=== PATIENT | male | born 1960 | race Caucasian/White ===

== ENCOUNTER 2022-06-28 11:50 | Inpatient (IN) | payer BC ==
[2022-06-28] MEDS ORDERED: SODIUM CHLORIDE 0.9% 500 ML 500 ML IV STA (12:27)
[2022-06-28] MEDS ORDERED: NITROGLYCERIN OINT 1 INCH/GM PACKET TOPICAL STA (12:27)
[2022-06-28] MEDS ORDERED: ASPIRIN 81 MG PO STA (12:27)
--- NOTE | 2022-06-28 12:31 | ED ---
General Adult HPI - General Chief complaint: Chest Pain Stated complaint: chest pain Time Seen by Provider: 06/28/22 12:00 Source: patient, RN notes reviewed, old records reviewed Mode of arrival: ambulatory Limitations: no limitations - History of Present Illness Initial comments: This is a 62-year-old male presents emergency Department has past medical history significant for smoking cigarettes and a strong family history of heart disease. Patient denies diabetes hypertension high cholesterol. Patient comes in today because over the last 3 weeks and 4 episodes of chest pain. Patient states last night was the worst he started having severe chest pain that radiated down his left arm he also became very short of breath and diaphoretic. Patient states it eventually subsided and went to bed. Patient states again this morning he started having the same symptoms didn't last quite as long and currently is almost chest pain-free but there is still little bit of chest pain. Patient denies any recent fever chills or cough. Patient denies any swelling to legs or calf tenderness. Patient denies any abdominal pain. Patient denies any pain in the back. Patient denies any recent injury or trauma. Patient denies any previous heart disease. - Related Data Home Medications Medication Instructions Recorded Confirmed No Known Home Medications 06/28/22 06/28/22 Allergies Allergy/AdvReac Type Severity Reaction Status Date / Time No Known Allergies Allergy Verified 06/28/22 12:55 Review of Systems ROS Statement: Those systems with pertinent positive or pertinent negative responses have been documented in the HPI. ROS Other: All systems not noted in ROS Statement are negative. Past Medical History Past Medical History: No Reported History Additional Past Medical History / Comment(s): kidney stones History of Any Multi-Drug Resistant Organisms: None Reported Past Surgical History: Orthopedic Surgery Past Psychological History: No Psychological Hx Reported Smoking Status: Current every day smoker Past Alcohol Use History: None Reported Past Drug Use History: None Reported General Exam - General Exam Comments Initial Comments: GENERAL: Patient is well-developed and well-nourished. Patient is nontoxic and well- hydrated and is in mild distress. ENT: Neck is soft and supple. No significant lymphadenopathy is noted. Oropharynx is clear. Moist mucous membranes. Neck has full range of motion without e liciting any pain. EYES: The sclera were anicteric and conjunctiva were pink and moist. Extraocular movements were intact and pupils were equal round and reactive to light. Eyelids were unremarkable. PULMONARY: Unlabored respirations. Good breath sounds bilaterally. No audible rales rhonchi or wheezing was noted. CARDIOVASCULAR: There is a regular rate and rhythm without any murmurs gallops or rubs. ABDOMEN: Soft and nontender with normal bowel sounds. SKIN: Skin is clear with no lesions or rashes and otherwise unremarkable. NEUROLOGIC: Patient is alert and oriented x3. Cranial nerves II through XII are grossly intact. Motor and sensory are also intact. Normal speech, volume and content. Symmetrical smile. MUSCULOSKELETAL: Normal extremities with adequate strength and full range of motion. LYMPHATICS: No significant lymphadenopathy is noted PSYCHIATRIC: Normal psychiatric evaluation. Limitations: no limitations Course Vital Signs 06/28/22 06/28/22 12:02 12:26 Temperature 97.7 F Pulse Rate 99 Pulse Rate [ 99 Pediatric Ophthalmologist ] Respiratory 24 Rate Blood Pressure 145/88 O2 Sat by Pulse 97 Oximetry Medical Decision Making - Medical Decision Making EKG was interpreted by me shows a sinus rhythm at 90 bpm ID interval is on a 49 dresses 95 QT interval 323 QTC is 371 per patient's EKG shows no ST segment elevation or depression. Was pt. sent in by a medical professional or institution? @ -No Did you speak to anyone other than the patient for history? @ - Did you review nursing and triage notes? @ -Agree with nursing notes Were old charts reviewed? @ -I was reviewing previous EKGs Differential Diagnosis? @ -Differential Chest Pain: Stable Angina, Unstable Angina, STEMI, NSTEMI Aortic Dissection, Pneumothorax, Musculoskeletal, Esophageal Spasm GERD, Cholecystitis, Pancreatitis, Zoster, this is not meant to be an all-inclusive list. EKG interpreted by me (3pts min.)? @ -As above X-rays interpreted by me (1pt min.)? @ -Yes shows no acute abnormality. CT interpreted by me (1pt min.)? @ -None U/S interpreted by me (1pt. min.)? @ -None What testing was considered but not performed? (CT, X-rays, U/S, labs)? Why? @ -CT but clinical presentation was not consistent with aortic dissection or pulmonary embolism What meds were considered but not given? Why? @ -None Did you discuss the management of the patient with other professionals? @ -I spoke with cardiology and the hospitalist Did you reconcile home meds? @ -No Was smoking cessation discussed for >3mins.? @ -I discussed smoking cessation for greater than 3 minutes. The risk of smoking were discussed with the patient including but not limited to risks of cancer, stroke, coronary artery disease and COPD. Also discussed with patient were multiple methods of quitting smoking. Lastly we discussed the financial cost of smoking. Was critical care preformed (if so, how long)? @ -Yes patient had 35 minutes critical care time. Patient was given aspirin and Nitropaste and started on heparin. I spoke with the hospitalist and they a greed to admit the patient I also spoke with cardiology about the patient's care. I also spoke with the patient and about his lab results and x-rays. Were there social determinants of health that impacted care today? How? (Homelessness, low income, unemployed, alcoholism, drug addiction, transportation, low edu. Level, literacy, decrease access to med. care, skilled nursing, rehab)? @ -None Was there de-escalation of care discussed even if they declined? (Discuss DNR or withdrawal of care, Hospice)? @ -No What co-morbidities impacted this encounter? (DM, HTN, Smoking, COPD, CAD, Cancer, CVA, Hep., AIDS, mental health diagnosis, sleep apnea, morbid obesity)? @ -Smoking as a comorbidity for this patient's coronary artery disease and sensitivity that is what he is being admitted for Was patient admitted / discharged? @ -Patient was admitted for non-STEMI. Patient was placed on aspirin given Nitropaste and eventually started a nitro drip and heparin were after a bolus was given. Patient's orders are written by myself and I consult cardiology Undiagnosed new problem with uncertain prognosis? @ -None Drug Therapy requiring intensive monitoring for toxicity (Heparin, Nitro, Insulin, Cardizem)? @ -None Were any procedures done? @ -None Diagnosis/symptom? @ -Non-STEMI Acute, or Chronic, or Acute on Chronic? @ -Acute Uncomplicated (without systemic symptoms) or Complicated (systemic symptoms)? @ -Complicated Side effects of treatment? @ -Monitoring any bleeding secondary to heparin and hypotension secondary nitroglycerin drip Exacerbation, Progression, or Severe Exacerbation] @ -Progression Poses a threat to life or bodily function? @ -Yes. Pending upon the degree of infarction this could potentially lead to end organ dysfunction of multiple organ systems. - Lab Data Result diagrams: 06/28/22 12:32 06/28/22 12:32 Lab Results 06/28/22 06/28/22 06/28/22 Range/Units 12:32 12:32 12:32 WBC 12.3 H (3.8-10.6) k/uL RBC 5.19 (4.30-5.90) m/uL Hgb 15.8 (13.0-17.5) gm/dL Hct 47.0 (39.0-53.0) % MCV 90.6 (80.0-100.0) fL MCH 30.5 (25.0-35.0) pg MCHC 33.7 (31.0-37.0) g/dL RDW 13.7 (11.5-15.5) % Plt Count 230 (150-450) k/uL MPV 9.1 PT 10.3 (9.0-12.0) sec INR 1.0 (<1.2) APTT 24.4 (22.0-30.0) sec Sodium 137 (137-145) mmol/L Potassium 4.1 (3.5-5.1) mmol/L Chloride 107 (98-107) mmol/L Carbon Dioxide 24 (22-30) mmol/L Anion Gap 6 mmol/L BUN 10 (9-20) mg/dL Creatinine 0.74 (0.66-1.25) mg/dL Est GFR (CKD-EPI)AfAm >90 (>60 ml/min/1.73 sqM) Est GFR (CKD-EPI)NonAf >90 (>60 ml/min/1.73 sqM) Glucose 97 (74-99) mg/dL Calcium 9.3 (8.4-10.2) mg/dL Magnesium 1.9 (1.6-2.3) mg/dL Total Bilirubin 0.4 (0.2-1.3) mg/dL AST 35 (17-59) U/L ALT 34 (4-49) U/L Alkaline Phosphatase 122 (38-126) U/L Troponin I (0.000-0.034) ng/mL Total Protein 6.9 (6.3-8.2) g/dL Albumin 4.3 (3.5-5.0) g/dL 06/28/22 Range/Units 12:32 WBC (3.8-10.6) k/uL RBC (4.30-5.90) m/uL Hgb (13.0-17.5) gm/dL Hct (39.0-53.0) % MCV (80.0-100.0) fL MCH (25.0-35.0) pg MCHC (31.0-37.0) g/dL RDW (11.5-15.5) % Plt Count (150-450) k/uL MPV PT (9.0-12.0) sec INR (<1.2) APTT (22.0-30.0) sec Sodium (137-145) mmol/L Potassium (3.5-5.1) mmol/L Chloride (98-107) mmol/L Carbon Dioxide (22-30) mmol/L Anion Gap mmol/L BUN (9-20) mg/dL Creatinine (0.66-1.25) mg/dL Est GFR (CKD-EPI)AfAm (>60 ml/min/1.73 sqM) Est GFR (CKD-EPI)NonAf (>60 ml/min/1.73 sqM) Glucose (74-99) mg/dL Calcium (8.4-10.2) mg/dL Magnesium (1.6-2.3) mg/dL Total Bilirubin (0.2-1.3) mg/dL AST (17-59) U/L ALT (4-49) U/L Alkaline Phosphatase (38-126) U/L Troponin I 1.150 H* (0.000-0.034) ng/mL Total Protein (6.3-8.2) g/dL Albumin (3.5-5.0) g/dL Critical Care Time Critical Care Time: Yes Total Critical Care Time: 35 Disposition Clinical Impression: Acute non-ST elevation myocardial infarction (NSTEMI) Disposition: ADMITTED IP TO THIS HOSP Referrals: Camron Diaz MD [Primary Care Provider] - 1-2 days Time of Disposition: 13:44
--- NOTE | 2022-06-28 12:48 | XR ---
EXAMINATION TYPE: XR chest 2V DATE OF EXAM: 06/28/2022 COMPARISON: None INDICATION: Chest pain short of breath TECHNIQUE: Frontal and lateral views of the chest are obtained. FINDINGS: The heart size is normal. The pulmonary vasculature is normal. Some mild increased lung markings. The right base. Correlate for atelectasis or pneumonia. Follow-up can be performed as clinically indicated. IMPRESSION: 1. Mild infiltrate appears to be at the right base. Correlate for atelectasis or pneumonia. Follow-up can be performed as clinically indicated
[2022-06-28 13:07] LABS: HGB 15.8 gm/dL (13.0-17.5); MCH 30.5 pg (25.0-35.0); MCHC 33.7 g/dL (31.0-37.0); MCV 90.6 fL (80.0-100.0); Mean Platelet Volume 9.1; Platelet Count 230 k/uL (150-450); RBC 5.19 m/uL (4.30-5.90); RDW 13.7 % (11.5-15.5); WBC 12.3 k/uL (3.8-10.6)
[2022-06-28 13:08] LABS: Partial Thromboplastin Time 24.4 sec (22.0-30.0); Prothrombin Time 10.3 sec (9.0-12.0)
[2022-06-28 13:09] LABS: ALT 34 U/L (4-49); AST 35 U/L (17-59); African American GFR (CKD) >90 (>60 ml/min/1.73 sqM); Albumin 4.3 g/dL (3.5-5.0); Alkaline Phosphatase 122 U/L (38-126); Anion Gap 6 mmol/L; Blood Urea Nitrogen 10 mg/dL (9-20); Calcium 9.3 mg/dL (8.4-10.2); Carbon Dioxide 24 mmol/L (22-30); Chloride 107 mmol/L (98-107); Glucose 97 mg/dL (74-99); Magnesium 1.9 mg/dL (1.6-2.3); Non-African American GFR(CKD) >90 (>60 ml/min/1.73 sqM); Potassium 4.1 mmol/L (3.5-5.1); Sodium 137 mmol/L (137-145); Total Bilirubin 0.4 mg/dL (0.2-1.3); Total Protein 6.9 g/dL (6.3-8.2)
[2022-06-28] MEDS ORDERED: HEPARIN SODIUM 1,000 UN/ML (10ML VL) IV ONE (13:43)
[2022-06-28] MEDS ORDERED: HEPARIN SOD,PORK IN 0.45% NACL 25,000 UNIT in 0.45% NACL 1 250ML.BAG IV SCH (13:45)
[2022-06-28] MEDS ORDERED: NITROGLYCERIN-D5W PMX 50 MG in DEXTROSE/WATER 1 250ML.BAG IV ONE (13:53)
[2022-06-28 13:58] LABS: Lymphocytes # (M) 0.98 k/uL (1.0-4.8); Monocytes # (M) 0.98 k/uL (0-1.0); Neutrophils # (M) 10.33 k/uL (1.3-7.7); Neutrophils % (M) 84 %; Nucleated Red Blood Cells 0 /100 WBC (0-0); Total Cells Counted 100
[2022-06-28 13:59] LABS: RBC Morphology Normal
[2022-06-28] MEDS ORDERED: NITROGLYCERIN SL TABS 0.4 MG TAB SUBLINGUAL PRN (14:15)
[2022-06-28 14:17] VITALS: RESP 18
[2022-06-28] MEDS ORDERED: METOPROLOL TARTRATE 25 MG TAB PO STA (16:59)
[2022-06-28] MEDS ORDERED: ATORVASTATIN 40 MG TAB PO STA (16:59)
[2022-06-28] MEDS ORDERED: ZOLPIDEM 5 MG TAB PO PRN (17:05)
[2022-06-28] MEDS: SODIUM CHLORIDE 0.9% 1,000 ML IV SCH (17:14)
[2022-06-28] MEDS: NICOTINE 14MG/24HR PATCH TRANSDERM SCH (17:14)
[2022-06-28] MEDS ORDERED: NITROGLYCERIN OINT 1 INCH/GM PACKET TOPICAL SCH (18:00)
--- NOTE | 2022-06-28 19:15 | CONS ---
CONSULTATION HISTORY OF PRESENT ILLNESS: This is a 62-year-old gentleman, who has a family history of premature CAD and smokes 1 pack of cigarettes daily. He has not seen his PCP in the last 2 years. For about 3 weeks, he has been having episodes of random chest pressure, sometimes with diaphoresis. He had at least 2 serious bouts, one on [place] and one yesterday lasting almost 3 to 4 hours, and he was also quite diaphoretic. This occurred when he was doing mild activity or at rest. However, he is completely pain-free now. EKG reveals sinus mechanism with minor nonspecific ST changes. Two sets of troponins are 1.1. Clinical picture is that of a subacute [place] with probably a stuttering-type myocardial infarction, [id number] type. He is hemodynamically stable, resting comfortably. He does not take any prescription medications. No allergies, and he has had some previous shoulder surgery and kidney stones. He is virtually asymptomatic at the time of my evaluation. PAST MEDICAL HISTORY: 1. Renal stones. 2. Shoulder surgery in the past. 3. No evidence of any hypertension, diabetes, myocardial infarction, or CVA. MEDICATIONS: No prescription medications. ALLERGIES: No allergies. CORONARY RISK FACTORS: Include family history and smoking. Cholesterol status is unknown. PHYSICAL EXAMINATION: VITAL SIGNS: Blood pressure is 128/70, pulse rate is about 84. HEENT: Unremarkable. Fundus was not examined by me. NECK: Supple. No JVD. I do not hear a carotid bruit. There is no thyromegaly. HEART: Reveals S1 and S2 heard normally. No rub, murmur, or gallop. LUNGS: Clear. ABDOMEN: Soft and nontender. EXTREMITIES: Lower extremities reveal normal pulses. No edema. CENTRAL NERVOUS SYSTEM: Grossly within normal limits. IMAGING STUDIES: EKG revealed sinus mechanism without any significant ST-T changes. Minor nonspecific changes noted. LABORATORY DATA: Reveal troponin elevation, flat, suggestive of possible recent subacute non-ST- elevation [place]. IMPRESSION: 1. Subacute pia-OA-tjynyoasa myocardial infarction with no chest pain at this time. 2. History of smoking. 3. Family history of coronary artery disease. RECOMMENDATIONS: I am recommending nitroglycerin and heparin drips, beta-sade, Lipitor, and we will keep him n.p.o. after midnight and perform cardiac catheterization in the morning. However, if he has symptoms, we will consider intervention sooner. I discussed my thoughts in detail with the patient and his . They understand all details and wished to proceed with the procedure. MMJUAN / MITCHN: [id number] /
[2022-06-28] MEDS: METOPROLOL TARTRATE 25 MG TAB PO SCH (21:37)
--- NOTE | 2022-06-29 00:53 | P.HPIM ---
History of Present Illness H&P Date: 06/28/22 Chief Complaint: Chest pain Patient is a 62-year-old male with with a known history of renal stones, currently everyday smoker presents to ER with complaints of chest pain. Patient states that he started having on and off chest pain since yesterday. Initial 2 episodes lasted for about 4 to 5 hours. Resolved with rest. Patient felt nauseous and diaphoretic. Pain rating down the left arm. Patient did have another episode this morning lasted about an hour with radiation to left arm and patient became diaphoretic. Chest pain is mainly across the upper chest. Complains of mild dizziness. No palpitations. No leg swelling. Denies any exertional dyspnea recently. No complaints of fever or chills. No cough or sputum production. No prior history of coronary disease. Patient states he has family history of heart disease. EKG showed sinus rhythm. Chest x-ray showed mild infiltrate appears to be at the right base. Correlate for atelectasis or pneumonia. Follow-up can be performed as clinically indicated. Laboratory pressure WBC 12.3 hemoglobin 15.8 and platelets 230 sodium 137 potassium 4.1 chloride 107 bicarb is 24 BUN 10 and creatinine 0.74 and magnesium 1.9 Troponin 1.150, 1.190 and 1.1 Patient is currently chest pain-free. Patient was started on heparin drip and nitro drip in the ER. Review of Systems Constitutional: Patient denies any fever or chills . no Generalized weakness. Abdomen: Patient denied any nausea or vomiting or abd. pain Cardiovascular: Patient denies any chest pain or short of breath no palpitat ions. Respiratory: patient denied any cough . no sputum production. No shortness of breath Neurologic: Patient denied any numbness or tingling headache. Musculoskeletal: Patient denies any complaints of joint swelling or deformity. Skin: Negative Psychiatric: Negative Endocrine: No heat or cold intolerance. No recent weight gain. Genitourinary: No dysuria or hematuria. All other 14 point ROS negative except the above Past Medical History Past Medical History: No Reported History Additional Past Medical History / Comment(s): kidney stones History of Any Multi-Drug Resistant Organisms: None Reported Past Surgical History: Orthopedic Surgery Past Psychological History: No Psychological Hx Reported Smoking Status: Current every day smoker Past Alcohol Use History: None Reported Past Drug Use History: None Reported Medications and Allergies Home Medications Medication Instructions Recorded Confirmed Type No Known Home Medications 06/28/22 06/28/22 History Allergies Allergy/AdvReac Type Severity Reaction Status Date / Time No Known Allergies Allergy Verified 06/28/22 12:55 Physical Exam Vitals: Vital Signs Temp Pulse Pulse Resp BP Pulse Ox 06/28/22 19:06 77 18 122/84 91 L 06/28/22 16:54 84 18 123/85 95 06/28/22 15:45 76 18 120/80 96 06/28/22 15:30 80 18 122/77 95 06/28/22 15:15 81 17 118/72 95 06/28/22 15:00 87 18 127/82 94 L 06/28/22 14:50 79 18 124/81 95 06/28/22 14:46 81 18 121/79 94 L 06/28/22 14:43 84 18 122/79 94 L 06/28/22 14:15 86 18 123/83 96 06/28/22 12:26 99 06/28/22 12:02 97.7 F 99 24 145/88 97 Intake and Output 06/28/22 06/28/22 06/28/22 06:59 14:59 22:59 Other: Weight 86.183 kg PHYSICAL EXAMINATION: Patient is lying in the bed comfortably, no acute distress, awake alert and oriented.. HEENT: Normocephalic. Neck is supple. Pupils reactive. Nostrils clear. Oral cavity is moist. Neck reveals no JVD, carotid bruits, or thyromegaly. CHEST EXAMINATION: Trachea is central. Symmetrical expansion. Lung bray clear to auscultation and percussion. CARDIAC: Normal S1, S2 with no gallops. No murmurs ABDOMEN: Soft. Bowel sounds present. Nontender. No organomegaly. No abdominal bruits. Extremities: reveal no edema. No clubbing or cyanosis Neurologically awake, alert, oriented x3 with well-coordinated movements. No focal deficits noted Skin: No rash or skin lesions. Psychiatric: Coperative. Nonsuicidal, Musculoskeletal: No joint swelling or deformity. Normal range of motion. Results CBC & Chem 7: 06/28/22 12:32 06/28/22 12:32 Labs: Abnormal Lab Results - Last 24 Hours (Table) 06/28/22 06/28/22 06/28/22 Range/Units 12:32 12:32 15:14 WBC 12.3 H (3.8-10.6) k/uL Neutrophils # (Manual) 10.33 H (1.3-7.7) k/uL Lymphocytes # (Manual) 0.98 L (1.0-4.8) k/uL Troponin I 1.150 H* 1.190 H* (0.000-0.034) ng/mL 06/28/22 Range/Units 18:20 WBC (3.8-10.6) k/uL Neutrophils # (Manual) (1.3-7.7) k/uL Lymphocytes # (Manual) (1.0-4.8) k/uL Troponin I 1.100 H* (0.000-0.034) ng/mL Thrombosis Risk Factor Assmnt - DVT/VTE Prophylaxis DVT/VTE Prophylaxis: Pharmacologic Prophylaxis ordered Assessment and Plan Assessment: Acute non-ST with ND with elevated troponin level Chest pain Ongoing nicotine addiction Family history of coronary artery disease History of renal stones DVT prophylaxis Plan: Patient will be continued on telemetry monitoring. Follow-up serial EKG and troponin x3. Was started on heparin drip and nitro drip. Continue with beta- blockers and statins. Cardiology has seen the patient is planning for cardiac catheterization tomorrow. Smoking cessation has been counseled extensively. Time with Patient: Greater than 30
[2022-06-29] MEDS: SODIUM CHLORIDE 0.9% 1,000 ML IV SCH (06:11)
[2022-06-29] MEDS ORDERED: IV FLUID CONTINUATION 1,000 ML IV ONE (07:42)
[2022-06-29 07:52] LABS: African American GFR (CKD) >90 (>60 ml/min/1.73 sqM); Anion Gap 5 mmol/L; Blood Urea Nitrogen 12 mg/dL (9-20); Calcium 8.5 mg/dL (8.4-10.2); Carbon Dioxide 23 mmol/L (22-30); Chloride 109 mmol/L (98-107); Glucose 104 mg/dL (74-99); Non-African American GFR(CKD) >90 (>60 ml/min/1.73 sqM); Potassium 4.2 mmol/L (3.5-5.1); Sodium 137 mmol/L (137-145)
[2022-06-29 07:54] LABS: HCT 46.8 % (39.0-53.0); HGB 15.3 gm/dL (13.0-17.5); MCH 30.1 pg (25.0-35.0); MCHC 32.6 g/dL (31.0-37.0); MCV 92.3 fL (80.0-100.0); Mean Platelet Volume 8.4; Platelet Count 209 k/uL (150-450); RBC 5.07 m/uL (4.30-5.90); RDW 13.7 % (11.5-15.5); WBC 13.6 k/uL (3.8-10.6)
[2022-06-29] MEDS ORDERED: HEPARIN SODIUM 1,000 UN/ML (10ML VL) ONE (07:58)
[2022-06-29] MEDS ORDERED: ASPIRIN 325 MG TAB ONE (08:05)
[2022-06-29] MEDS ORDERED: ASPIRIN 325 MG TAB PO ONE (08:06)
[2022-06-29] MEDS ORDERED: MIDAZOLAM 2 MG/2 ML VIAL IV ONE (08:07)
[2022-06-29] MEDS ORDERED: LIDOCAINE 1% INJ 10MG/ML (5 ML VIAL-PF) SQ ONE (08:13)
[2022-06-29] MEDS ORDERED: VERAPAMIL SYRINGE (5 MG/10 ML) INTRAARTER ONE (08:15)
[2022-06-29] MEDS: HEPARIN SODIUM 1,000 UN/ML (10ML VL) IV ONE ×3 (08:22→09:05)
[2022-06-29] MEDS ORDERED: CLOPIDOGREL 75 MG TAB ONE (08:26)
[2022-06-29] MEDS ORDERED: CLOPIDOGREL 75 MG TAB PO ONE (08:28)
[2022-06-29] MEDS ORDERED: IOPAMIDOL-370 100ML BTL INJ ONE (08:30)
--- NOTE | 2022-06-29 08:40 | PN ---
PROGRESS NOTE SUBJECTIVE: This is a gentleman I saw yesterday in the emergency room. He presented with somewhat of a subacute stuttering [place] or a non-ST elevation type [place]. EKG was unremarkable. This morning EKG revealed precordial ST changes suggestive of ischemia in the LAD distribution, hemodynamically stable, completely pain-free on IV heparin. Troponin is pending. Echo revealed mild distal septal apical hypokinesia. I am recommending coronary angiography. Risks, benefits, and rationale explained to the patient and . We will perform procedure from right radial approach. The patient and understand all details and wished to proceed with the procedure. PHYSICAL EXAMINATION: Otherwise unchanged. VITAL SIGNS: Stable. MMODL / IJN: [id number] /
[2022-06-29] MEDS: NITROGLYCERIN 1000MCG/10ML SYRINGE INTRACORON ONE ×2 (08:55→08:58)
[2022-06-29] MEDS ORDERED: HYDROmorphone 0.5 MG/0.5 ML SYRINGE IVP ONE (08:57)
[2022-06-29] MEDS ORDERED: ASPIRIN 325 MG TAB PO SCH (09:00)
[2022-06-29] MEDS ORDERED: ATORVASTATIN 40 MG TAB PO SCH (09:00)
[2022-06-29] MEDS ORDERED: IOPAMIDOL-370 125ML BTL INJ ONE (09:11)
[2022-06-29] MEDS ORDERED: MAG HYDROX/AL HYDROX/SIMETH 30 ML CUP PO PRN (09:13)
[2022-06-29] MEDS ORDERED: RX INFO: IV CONTRAST WAS GIVEN 1 EACH MISC MISCELLANE PRN (09:13)
[2022-06-29] MEDS ORDERED: ATROPINE SULFATE 0.1 MG/ML 10ML SYRINGE IV PRN (09:13)
[2022-06-29] MEDS ORDERED: SODIUM CHLORIDE 0.9% 1,000 ML IV ONE (09:15)
--- NOTE | 2022-06-29 11:12 | CC ---
CARDIAC CATHETERIZATION REPORT PROCEDURES PERFORMED: 1. Left heart catheterization and coronary angiography. 2. Percutaneous transluminal coronary angioplasty and stenting of mid left anterior descending with drug-eluting stent. PERFORMED BY: Dr. Michelle Osuna. Moderate conscious sedation time was 50 minutes. The patient was administered Versed. Oxygen saturation, hemodynamics, and EKG were monitored closely. CLINICAL INFORMATION: Mr. Juan Schmidt is a 62-year-old gentleman with a family history of CAD and smoking. He came into the hospital with protracted episodes of chest pain, 2 long episodes, last one on [place] and one the night before presentation. His troponin was elevated. Clinical picture was that of a subacute stuttering myocardial infarction. He had a mild wall motion abnormality in the distal anteroapical septal wall. He was advised cardiac catheterization after due discussion. Risks, benefits, options, and rationale were explained. He presented with a [id number] DE, subacute in duration. PROCEDURE NOTE: Under local anesthesia and strict aseptic precautions, a 6-Vietnamese introducer was placed in the right radial artery. I used a JR4 catheter to perform selective coronary angiography of the right coronary artery and also checked LV pressures, but did not perform LV-gram. I used a guide catheter, standard Lizabeth guide of 3.5 curve for the left coronary injection, and I also performed intervention with the same catheter. Following the intervention, the sheath was taken out, and TR band was applied as per protocol. The saturation in the fingers of the right hand was 94% to 95%. He was advised to be on dual-antiplatelet therapy with aspirin and Plavix without interruption for 1 year. CARDIAC CATHETERIZATION FINDINGS: The left ventricular end-diastolic pressure was 5 mmHg without any gradient across aortic valve. CORONARY ANGIOGRAPHY FINDINGS: RIGHT CORONARY ARTERY: Technically dominant vessel, large in caliber and distribution, almost aneurysmal, distally bifurcates into a large PDA and PLV. Mild calcification. No significant disease. Only minor irregularities. LEFT MAIN CORONARY ARTERY: Short, patent vessel, free of significant disease that bifurcates into LAD and circumflex. LEFT ANTERIOR DESCENDING CORONARY ARTERY: Good-caliber vessel, extends along the anterior wall, gives off 2 diagonal branches and immediately after the second diagonal is a 99% calcified stenosis, after which, there is sluggish flow in the distal LAD. This is the culprit lesion. Mid LAD 99% with calcification. The diagonal branches have minor irregularities. Just before the narrowing where the diagonal branches come off, there is a 35% to 40% narrowing of the LAD. Prior to that, the vessel is somewhat aneurysmal. Mid LAD, therefore, has a 99% calcified lesion. LEFT POSTERIOR CIRCUMFLEX CORONARY ARTERY: Technically nondominant vessel, gives off a fair-sized obtuse marginal that runs laterally and has minor irregularities of about 30% to 35%. No significant disease. Left ventriculogram was not performed. FINAL IMPRESSION: This patient has a right-dominant system. Normal filling pressures. No gradient. A mid left anterior descending 99% stenosis with about a 35% to 40% lesion proximal to the 99% stenosis. Circumflex is nondominant, free of significant disease. RECOMMENDATIONS: I recommended PCI of LAD and performed this in the same setting. PCI PROCEDURE DETAILS: A 3.5 left Lizabeth guide catheter was used to cannulate the left coronary artery. Initially, I tried a Runthrough wire, then I switched over to a 45-degree SuperCross with a long Runthrough wire. With this combination, I crossed the lesion. Wire was kept distally. A 2.5-caliber NC Trek balloon was used to pre-dilate the lesion. I then deployed a 3.5-caliber 12-mm Xience stent at the origin of the diagonal branch extending into the LAD. The patient had chest pain and precordial ST elevation. Excellent angiographic result without complication was achieved. The flow in the diagonal was very well preserved. I protected the diagonal by putting a short Runthrough wire during the stent placement. Excellent angiographic result without complication was achieved. Findings were discussed with the patient and family. The patient received 5500 units of heparin, and ACT was 257. He received additional 1500 after the procedure because at the end of the procedure, ACT came to 188. During the procedure, it was 257. He also received 600 mg of Plavix, and he will take aspirin and Plavix without interruption for 1 year. The patient will be discharged tomorrow if he remains stable. He was advised a strict risk factor modification and statins and smoking cessation. MMODL / IJN: [id number] /
[2022-06-29] MEDS: METOPROLOL TARTRATE 25 MG TAB PO SCH ×2 (11:36→20:50)
[2022-06-29] MEDS: LOSARTAN 50 MG TAB PO SCH (12:58)
[2022-06-29 13:20] LABS: Neutrophils # (M) 10.61 k/uL (1.3-7.7); Neutrophils % (M) 78 %; Nucleated Red Blood Cells 0 /100 WBC (0-0); RBC Morphology Normal; Total Cells Counted 100
--- NOTE | 2022-06-29 15:31 | P.PN ---
Subjective Progress Note Date: 06/29/22 Hospital course: Patient is a very pleasant 62-year-old male with a past medical history of nicotine dependence. He presented to the emergency department on 06/28/22 with a chief complaint of chest pain. Patient reported he initially began to feel chest pain/pressure to his left anterior chest on [place] while relaxing with his family. Patient reports this pain waxed and waned over the next couple days and seemed to improve with rest and worsened with exertion and radiated into the left arm and shoulder. He underwent full evaluation in the emergency department. An EKG was completed revealing normal sinus rhythm at 90 bpm. Chest x-ray was consistent for hyperinflation and mild infiltrate right lower lobe, likely atelectasis. Labs completed and reviewed revealing leukocytosis with WBC count of 12.3 and elevated troponin of 1.150. Patient was started on heparin p er ACS protocol and admitted under hospitalist services with consultation to cardiology. Troponins trended and all elevated at 1.150, 1.190, and 1.100. Lipid profile unremarkable. Patient was taken for echocardiogram which revealed slightly impaired EF of 45-50% with mild mitral and tricuspid regurgitation. Patient when evaluated by cardiology and taken for cardiac cath. Cardiac cath on patient to have occlusive coronary artery disease which resulted in percutaneous transluminal coronary angioplasty and stenting of mid LAD. Physical exam: Patient seen and fully evaluated at bedside upon return from cardiac cath. TR band has already been removed from Cardiac cath access site right wrist inpatient showing no signs of swelling, redness, bleeding, or hematoma. Patient ambulatory in room. He reports completely free from any chest pain or discomfort at this time and denies having any other complaints including dizziness, lightheadedness, palpitations, shortness of breath, or experiencing any numbness/tingling/weakness in his extremities. Vital signs reviewed and stable. General: Nontoxic, no distress and appears stated age. Derm: Skin warm and dry, normal coloration for ethnicity. Head: Atraumatic, normocephalic and symmetric. Eyes: EOMs intact, no lid lag, and anicteric sclera Mouth: no lip lesions, mucus membranes moist Cardiovascular: regular rate and rhythm with normal S1S2, no murmur, positive posterior tibial pulses bilaterally, and cap refill < 2 seconds. Lungs: Respirations even, regular, and unlabored on room air. Lungs CTA bilaterally, no rhonchi, no rales, no wheezing, and no accessory muscle usage. Abdominal: soft, nontender to palpation, no guarding, no appreciable organomegaly Ext: ROM intact. No gross muscle atrophy, no edema, no contractures Neuro: Speech clear, face symmetrical and CN II-XII grossly intact with no noted focal neuro deficits Psych: Alert and oriented to person, place, time, and situation. Appropriate and pleasant affect. Assessment and Plan of Care: NSTEMI -Cardiology following. -Telemetry monitoring -Troponins trended and all elevated at 1.150, 1.190, and 1.100. -Lipid profile unremarkable. -Patient was taken for echocardiogram which revealed slightly impaired EF of 45- 50% with mild mitral and tricuspid regurgitation. -Cardiac cath on patient to have occlusive coronary artery disease which resulted in percutaneous transluminal coronary angioplasty and stenting of mid LAD. -Cardiac diet -Continue cardiac medication regimen with aspirin, Plavix, losartan, and metoprolol. -Lipid profile with a.m. labs. -Echocardiogram Nicotine dependence -Strongly recommend smoking cessation and educated patient on importance of smoking cessation and risks of continued use.. -Nicotine patch CODE STATUS: Full code DVT prophylaxis: Heparin Discussed with: Patient, patient's , and RN Anticipated discharge date: tomorrow morning Anticipated discharge place: Home A total of 35 minutes was spent on the care of this complex patient more than 50% of the time was spent in counseling and care coordination. Objective - Vital Signs Vital signs: Vital Signs Temp 96.7 F L 06/29/22 15:00 Pulse 66 06/29/22 15:00 Resp 18 06/29/22 15:00 BP 153/89 06/29/22 15:00 Pulse Ox 95 06/29/22 15:00 FiO2 Intake & Output 06/28/22 06/29/22 06/29/22 18:59 06:59 18:59 Intake Total 500 Output Total 250 Balance 250 Weight 86.183 kg 86.183 kg Intake: IV 500 Output: Urine 250 - Labs CBC & Chem 7: 06/29/22 07:21 06/29/22 07:21 Labs: Abnormal Lab Results - Last 24 Hours (Table) 06/28/22 06/28/22 06/29/22 Range/Units 15:14 18:20 07:21 WBC (3.8-10.6) k/uL Neutrophils # (Manual) (1.3-7.7) k/uL Monocytes # (Manual) (0-1.0) k/uL Chloride 109 H (98-107) mmol/L Glucose 104 H (74-99) mg/dL Troponin I 1.190 H* 1.100 H* (0.000-0.034) ng/mL 06/29/22 06/29/22 Range/Units 07:21 07:21 WBC 13.6 H (3.8-10.6) k/uL Neutrophils # (Manual) 10.61 H (1.3-7.7) k/uL Monocytes # (Manual) 1.50 H (0-1.0) k/uL Chloride (98-107) mmol/L Glucose (74-99) mg/dL Troponin I 0.662 H* (0.000-0.034) ng/mL
[2022-06-29] MEDS: NICOTINE 14MG/24HR PATCH TRANSDERM SCH (16:54)
[2022-06-29 17:20] LABS: Chol/HDL Ratio 3.89 Ratio; LDL Cholesterol,Calculated 115.2 mg/dL (0.0-131.0); VLDL Calculation 18.46 mg/dL (5.00-40.00)
--- NOTE | 2022-06-29 18:13 | CA ---
Transthoracic Echo Report Name: Juan Schmidt Age: 62 Gender: M : 1960 Exam Date: 06/29/2022 07:40 Exam Location: [facility] Ht (in): 71 Wt (lb): 190 Ordering Physician: Arnol Osuna MD ([id number]) Attending/Referring Phys: [facility] Director Yamile Li RDCS Procedure CPT: Indications: cardiac ischemia Cardiac Hx: Technical Quality: Fair Contrast 1: Total Dose (mL): Contrast 2: Total Dose (mL): MEASUREMENTS (Male / Female) Normal Values 2D ECHO LV Diastolic Diameter PLAX 4.7 cm 4.2 - 5.9 / 3.9 - 5.3 cm LV Systolic Diameter PLAX 2.6 cm IVS Diastolic Thickness 1.4 cm 0.6 - 1.0 / 0.6 - 0.9 cm LVPW Diastolic Thickness 1.2 cm 0.6 - 1.0 / 0.6 - 0.9 cm LV Relative Wall Thickness 0.6 LA Volume 46.5 cm??? 18 - 58 / 22 - 52 cm??? M-MODE Aortic Root Diameter MM 3.2 cm LA Systolic Diameter MM 3.8 cm LA Ao Ratio MM 1.2 AV Cusp Separation MM 2.1 cm DOPPLER AV Peak Velocity 118.2 cm/s AV Peak Gradient 5.6 mmHg LVOT Peak Velocity 94.1 cm/s LVOT Peak Gradient 3.5 mmHg MV Area PHT 3.5 cm??? Mitral E Point Velocity 54.0 cm/s Mitral A Point Velocity 75.4 cm/s Mitral E to A Ratio 0.7 MV Deceleration Time 214.3 ms MV E' Velocity 5.8 cm/s Mitral E to MV E' Ratio 9.3 TR Peak Velocity 144.0 cm/s TR Peak Gradient 8.3 mmHg Right Ventricular Systolic Press 13.3 mmHg FINDINGS Left Ventricle Mild left ventricle hypertrophy. Left ventricular ejection fraction is estimated at 45- 50 %. The anteroapical and apical lateral wall are hypokinetic Right Ventricle Normal right ventricular size and function. Right ventricular systolic pressure within normal limits. Right Atrium Normal right atrial size. Left Atrium Normal left atrial size. Mitral Valve Structurally normal mitral valve. Mild mitral annular calcification. Mild mitral regurgitation. Aortic Valve No aortic valve stenosis or regurgitation. Tricuspid Valve Structurally normal tricuspid valve. Mild tricuspid regurgitation. Pulmonic Valve Pulmonic valve not well visualized. Pericardium No pericardial effusion. Aorta Normal size aortic root and proximal ascending aorta. CONCLUSIONS 1. Normal ventricle size with mildly impaired systolic function with segmental wall motion abnormality 2. Mild mitral and tricuspid regurgitation Previewed by: Dr. Kehinde Rosales MD (Electronically Signed) Final Date: 29 June 2022 18:12
[2022-06-29] MEDS ORDERED: NICOTINE 14MG/24HR PATCH TRANSDERM STA (18:45)
[2022-06-30 03:27] VITALS: TEMP 97.7
[2022-06-30] MEDS ORDERED: HEPARIN SODIUM,PORCINE 10,000 UNIT in SODIUM CHLORIDE 0.9% 1,000 ML IRRIGATION PRN (07:00)
[2022-06-30] MEDS ORDERED: HEPARIN SODIUM,PORCINE 2,500 UNIT in SODIUM CHLORIDE 0.9% 250 ML IRRIGATION PRN (07:00)
[2022-06-30 08:34] LABS: African American GFR (CKD) >90 (>60 ml/min/1.73 sqM); Non-African American GFR(CKD) >90 (>60 ml/min/1.73 sqM)
[2022-06-30] MEDS ORDERED: ASPIRIN 81 MG PO SCH (09:00)
[2022-06-30] MEDS ORDERED: ATORVASTATIN 80 MG TAB PO SCH (09:00)
[2022-06-30] MEDS ORDERED: CLOPIDOGREL 75 MG TAB PO SCH (09:00)
[2022-06-30] MEDS: LOSARTAN 50 MG TAB PO SCH (09:11)
[2022-06-30] MEDS: NICOTINE 14MG/24HR PATCH TRANSDERM SCH (09:11)
[2022-06-30] MEDS: METOPROLOL TARTRATE 25 MG TAB PO SCH (09:11)
--- NOTE | 2022-06-30 09:59 | P.DS ---
Providers Date of admission: 06/28/22 14:16 Expected date of discharge: 06/30/22 Attending physician: Regine Bonilla, DO Consults: 06/28/22 14:15 Consult Physician Urgent Consulting Provider: Mike Gracia Consult Reason/Comments: Non-STEMI Do you want consulting provider notified?: Yes 06/29/22 09:13 Consult Physician Routine Consulting Provider: Mike Gracia Consult Reason/Comments: Post Interventional patient Do you want consulting provider notified?: Already Contacted Primary care physician: Camron Diaz [facility] Hospital Course: Discharge Diagnosis: NSTEMI, status post cardiac cath resulting in successful stenting of mid LAD. Patient started on dual antiplatelet therapy with aspirin and Plavix along with atorvastatin, losartan, and metoprolol. Echocardiogram was completed revealing slightly impaired EF of 45-50% with mild mitral and tricuspid regurgitation. Post cardiac cath access site right wrist showing no signs of bleeding, bruising, or hematoma. Patient denies having any numbness tingling or weakness and right hand. Cardiology recommending outpatient follow-up in our office in 1 week. Nicotine dependence. Strongly recommended smoking cessation and educated patient on importance of smoking cessation and risks of continued use. Prescription provided for Nicotine patch. Hospital Course: Patient is a very pleasant 62-year-old male with a past medical history of nicotine dependence. He presented to the emergency department on 06/28/22 with a chief complaint of chest pain. Patient reported he initially began to feel chest pain/pressure to his left anterior chest on [place] while relaxing with his family. Patient reports this pain waxed and waned over the next couple days and seemed to improve with rest and worsened with exertion and radiated into the left arm and shoulder. He underwent full evaluation in the emergency department. An EKG was completed revealing normal sinus rhythm at 90 bpm. Chest x-ray was consistent for hyperinflation and mild infiltrate right lower lobe, likely atelectasis. Labs completed and reviewed revealing leukocytosis with WBC count of 12.3 and elevated troponin of 1.150. Patient was started on heparin per ACS protocol and admitted under hospitalist services with consultation to cardiology. Troponins trended and all elevated at 1.150, 1.190, and 1.100. Lipid profile unremarkable. Patient was taken for echocardiogram which revealed slightly impaired EF of 45-50% with mild mitral and tricuspid regurgitation. Patient when evaluated by cardiology and taken for cardiac cath. Cardiac cath on patient to have occlusive coronary artery disease which resulted in percutaneous transluminal coronary angioplasty and stenting of mid LAD. Patient monitored overnight. Cardiac cath access site showing no signs of bruising, bleeding, or hematoma. Patient is medically stable at this time, cardiology recommending outpatient follow-up in our office in one week. Patient discharged home on dual antiplatelet therapy with aspirin and Plavix along with atorvastatin, losartan, and metoprolol. Patient's discharge instructions discussed with patient and patient's at bedside discussed all medications and importance of smoking cessation. Patient medically stable for discharge and to follow up outpatient with PCP in 1-2 days and cardiology in 1 week. Physical exam: Vital signs reviewed and stable. General: Nontoxic, no distress and appears stated age. Derm: Skin warm and dry, normal coloration for ethnicity. Head: Atraumatic, normocephalic and symmetric. Eyes: EOMs intact, no lid lag, and anicteric sclera Mouth: no lip lesions, mucus membranes moist Cardiovascular: regular rate and rhythm with normal S1S2, no murmur, positive posterior tibial pulses bilaterally, and cap refill < 2 seconds. Lungs: Respirations even, regular, and unlabored on room air. Lungs CTA bilaterally, no rhonchi, no rales, no wheezing, and no accessory muscle usage. Abdominal: soft, nontender to palpation, no guarding, no appreciable organomeg roger Ext: ROM intact. No gross muscle atrophy, no edema, no contractures Neuro: Speech clear, face symmetrical and CN II-XII grossly intact with no noted focal neuro deficits Psych: Alert and oriented to person, place, time, and situation. Appropriate and pleasant affect. A total of 35 minutes of time were spent preparing this complex discharge summary. Pt was discharged on 06/30/22 at 9:58 AM. Patient Condition at Discharge: Stable Plan - Discharge Summary Discharge Rx Participant: Yes New Discharge Prescriptions: New Atorvastatin [Lipitor] 80 mg PO DAILY 30 Days #30 tab Aspirin 81 mg PO DAILY 30 Days #30 tab Losartan [Cozaar] 50 mg PO DAILY 30 Days #30 tab Nicotine 14Mg/24Hr Patch [Habitrol] 1 patch TRANSDERM DAILY 30 Days #30 patch Metoprolol Tartrate [Lopressor] 25 mg PO BID 30 Days #30 tab Nitroglycerin Sl Tabs [Nitrostat] 0.4 mg SUBLINGUAL Q5M PRN #90 tab PRN Reason: Chest Pain Clopidogrel [Plavix] 75 mg PO DAILY 30 Days #30 tab Discharge Medication List Aspirin 81 mg PO DAILY 30 Days #30 tab 06/30/22 [Rx] Atorvastatin [Lipitor] 80 mg PO DAILY 30 Days #30 tab 06/30/22 [Rx] Clopidogrel [Plavix] 75 mg PO DAILY 30 Days #30 tab 06/30/22 [Rx] Losartan [Cozaar] 50 mg PO DAILY 30 Days #30 tab 06/30/22 [Rx] Metoprolol Tartrate [Lopressor] 25 mg PO BID 30 Days #30 tab 06/30/22 [Rx] Nicotine 14Mg/24Hr Patch [Habitrol] 1 patch TRANSDERM DAILY 30 Days #30 patch 06/30/22 [Rx] Nitroglycerin Sl Tabs [Nitrostat] 0.4 mg SUBLINGUAL Q5M PRN #90 tab 06/30/22 [Rx] Follow up Appointment(s)/Referral(s): Arnol Osuna MD [STAFF PHYSICIAN] - 1 Week (CARDIOLOGY'S OFFICE WILL CALL YOU WITH APPOINTMENT DATE AND TIME.) Camron Diza MD [Primary Care Provider] - 1-2 days (PLEASE CALL AND SCHEDULE APPOINTMENT.) Patient Instructions/Handouts: Metoprolol (By mouth), Aspirin (By mouth), Nicotine (Absorbed through the skin), Nitroglycerin, Rapid Release (By mouth), Losartan (By mouth), Clopidogrel (By mouth), Heart Attack (DC), How to Stop Smoking (DC), Heart Healthy Diet (DC), Coronary Intravascular Stent Placement (DC), After Radial Heart Catheterization (GEN) Activity/Diet/Wound Care/Special Instructions: Discharge Instructions After Cardiac Catheterization with Stent Placement: Aspirin as anti-platelet therapy - Aspirin lessens the chance of heart attack and stroke. It helps prevent blood clots from forming, allowing the blood to flow more easily. Each day, you will take one 81 mg (non-enteric coated) tablet daily. You will be taking aspirin as a lifelong medication. Do not stop unless instructed by your doctor. Anti-platelet Therapy. -In addition to aspirin, you will take one additional anti-platelet medication daily. This will help prevent a clot from forming in your stent: Plavix (clopidogrel) -You will need to take your anti-platelet medicine every day for 12 months -Please consult your heart doctor before you stop this medicine. -They may want you to continue for a longer period of time. Statins -A statin medication lowers cholesterol levels in the blood. This helps slow the progression of heart disease. - Please take your statin medication as prescribed by your doctor. -You may be taking one of the following statins: Simvastatin Beta blockers Your Medication: Metoprolol Is a medication that protects your heart from stress and can prevent future heart attacks. It can slow your heart rate. It can take weeks for your body to get used to a beta sade. The dose may need to be changed a few times as your body adjusts Angiotensin receptor sade (ARBs) Your medication: Losartan is an angiotensin receptor sade in the ER used to reduce cardiovascular events and decrease the risk of developing diabetes, these medications are also known to prevent left ventricular remodeling after you have suffered a myocardial infarction. Do not stop taking these medicines without talking to your doctor. -Take all other medicines as directed by your doctor. Do not take any extra aspirin or ibuprofen. They can increase your risk of bleeding. Many [id number] drugs contain aspirin. If you are unsure about what the drug contains, check with your pharmacist before taking it. -For mild discomfort, you may take plain Tylenol (acetaminophen). Follow dose directions, but do not take more than 4,000 mg of acetaminophen in 24 hours. Contact your doctor right away or go to the nearest hospital Emergency Room if you have: -Severe angina or chest pain. (This may be a sign of a problem with your stent.) -Excessive bruising, blood in urine/stool or black tarry stools. Healthy LifeStyle It is important to keep a heart healthy lifestyle. This can improve your long- term health and decrease your risk for heart attacks. -Managing your blood cholesterol, blood pressure, weight, and stress. -The importance of regular exercise. -Heart Healthy Diet: Include more plants in your diet. Eat lots of fresh vegetables and fresh fruits. Eat good fats: plant based oils, avocado, nuts, beans, legumes. Eat more seafood. Limit Meat. Switch to whole grains. -Avoid fried foods and animal fats and processed meats Follow up with Dr. Osuna with [facility] in one week. Would also like you to follow up with your PCP, Dr. Diaz on Sunday. Thank you for allowing us to participate in your care, it was truly a pleasure having you for our patient!!! Wishing you and your is very happy and healthy New Year!!!!! Discharge Disposition: HOME SELF-CARE
[2022-06-30 10:22] VITALS: BP 122/80; PULSE 73
[2022-06-30] MEDS ORDERED: LOSARTAN 25 MG TAB PO SCH ×2 (20:00)
[2022-06-30] MEDS ORDERED: LOSARTAN 50 MG TAB PO SCH (20:00)
--- NOTE | 2022-06-30 21:07 | DS ---
DISCHARGE SUMMARY HOSPITAL COURSE: Mr. Schmidt came in with a subacute [id number] NM in the anterior wall. Ejection fraction is 45% with anteroapical septal hypokinesia. I performed stenting of mid LAD after diagonal branch with excellent result, doing well. Right radial site is clean and dry with a good pulse. He is advised to be on dual-antiplatelet therapy for 1 year. Discharge instructions regarding activity, diet, and medications were given. The patient will be discharged today. I will see him in the office in about a week or 10 days. Advised not to do any strenuous activity and to be compliant with medications. Refrain from smoking. A nicotine patch is also advised. DISCHARGE MEDICATIONS: Reviewed. DISCHARGE INSTRUCTIONS: Reviewed. MMODL / IJN: [id number] /
== END 2022-06-30 11:13 | disposition home or self-care (01) | DRG 247 ==
LOC: EC 11:50 → 3SCARD 14:16
PROVIDERS: ADMIT Internal Medicine; ATTEND Internal Medicine
PROC: 027034Z Dilation of Coronary Artery, One Artery with Drug-eluting Intraluminal Device, Percutaneous Approach (ICD-10-PCS; principal; 2022-06-29 11:00)
PROC: 4A023N7 Measurement of Cardiac Sampling and Pressure, Left Heart, Percutaneous Approach (ICD-10-PCS; principal; 2022-06-29 11:00)
PROC: B2111ZZ Fluoroscopy of Multiple Coronary Arteries using Low Osmolar Contrast (ICD-10-PCS; principal; 2022-06-29 11:00)
DX: I21.4 Non-ST elevation (NSTEMI) myocardial infarction (principal); J98.11 Atelectasis; F17.210 Nicotine dependence, cigarettes, uncomplicated; E11.9 Type 2 diabetes mellitus without complications; Z71.6 Tobacco abuse counseling; I10 Essential (primary) hypertension; I25.10 Atherosclerotic heart disease of native coronary artery without angina pectoris; J44.9 Chronic obstructive pulmonary disease, unspecified; K21.9 Gastro-esophageal reflux disease without esophagitis; Z87.442 Personal history of urinary calculi; Z82.49 Family history of ischemic heart disease and other diseases of the circulatory system; I08.0 Rheumatic disorders of both mitral and aortic valves; Z28.310 Unvaccinated for COVID-19; Z28.21 Immunization not carried out because of patient refusal
CPT/HCPCS: 36415; 71046; 80048; 80053; 80061; 82565; 83735; 84443; 84484; 85025; 85610; 85730; 93005; 93306; 93458; 96365; 96366; 96368; 99285

== ENCOUNTER 2022-07-30 20:43 | Emergency (ER) | payer BC ==
[2022-07-30 20:50] VITALS: TEMP 97.2
[2022-07-30 21:06] VITALS: BP 134/83; PULSE 58; RESP 20
--- NOTE | 2022-07-30 21:06 | ED ---
General Adult HPI - General Chief complaint: Shortness of Breath Stated complaint: SOB Time Seen by Provider: 07/30/22 21:03 Source: patient Mode of arrival: ambulatory Limitations: no limitations - History of Present Illness Initial comments: Patient presents to the ED with his for evaluation. Patient states that he had a heart attack with stent placement about 3 weeks ago, and he states that he has had intermittent episodes of dyspnea since then. Patient states that he has felt dyspneic since this morning. Patient states that his dyspnea is worse with activity/exertion. Patient denies having any pain, fever or chills, headache, focal numbness/weakness/neuro deficit, chest pain or pressure, neck/arm/jaw/back pain, cough or cold symptoms, palpitations, dizziness, nausea/vomiting/diaphoresis, abdominal pain, bloody or melanotic stool, dysuria or urinary symptoms, decreased urine output, leg or calf swelling or pain, or any other symptoms or complaints. - Related Data Home Medications Medication Instructions Recorded Confirmed Nicotine 14Mg/24Hr Patch [Habitrol] 1 patch TRANSDERM DAILY PRN 07/30/22 07/30/22 Previous Rx's Medication Instructions Recorded Aspirin 81 mg PO DAILY 30 Days #30 tab 06/30/22 Atorvastatin [Lipitor] 80 mg PO DAILY 30 Days #30 tab 06/30/22 Clopidogrel [Plavix] 75 mg PO DAILY 30 Days #30 tab 06/30/22 Losartan [Cozaar] 50 mg PO DAILY 30 Days #30 tab 06/30/22 Metoprolol Tartrate [Lopressor] 25 mg PO BID 30 Days #30 tab 06/30/22 Nitroglycerin Sl Tabs [Nitrostat] 0.4 mg SUBLINGUAL Q5M PRN #90 tab 06/30/22 Allergies Allergy/AdvReac Type Severity Reaction Status Date / Time No Known Allergies Allergy Verified 07/30/22 20:50 Review of Systems ROS Statement: Those systems with pertinent positive or pertinent negative responses have been documented in the HPI. ROS Other: All systems not noted in ROS Statement are negative. Past Medical History Past Medical History: No Reported History, Myocardial Infarction ([place]) Additional Past Medical History / Comment(s): kidney stones History of Any Multi-Drug Resistant Organisms: None Reported Past Surgical History: Orthopedic Surgery Additional Past Surgical History / Comment(s): shoulder shoulder Past Psychological History: No Psychological Hx Reported Smoking Status: Current every day smoker, Former smoker Past Alcohol Use History: Occasional Past Drug Use History: None Reported General Exam Limitations: no limitations General appearance: alert, in no apparent distress Head exam: Present: atraumatic, normocephalic Eye exam: Present: normal appearance, EOMI ENT exam: Present: mucous membranes moist Neck exam: Present: other (Trachea is in midline) Respiratory exam: Present: normal lung sounds bilaterally. Absent: respiratory distress, wheezes, rales, rhonchi, stridor Cardiovascular Exam: Present: normal rhythm, bradycardia, normal heart sounds, other (Normal radial pulses bilaterally) GI/Abdominal exam: Present: soft. Absent: distended, tenderness, guarding Extremities exam: Present: other (negative Homans sign bilaterally). Absent: tenderness, pedal edema, calf tenderness Neurological exam: Present: alert, oriented X3. Absent: motor sensory deficit Psychiatric exam: Present: normal affect, normal mood Skin exam: Present: warm, dry, intact, normal color Course Vital Signs 07/30/22 07/30/22 07/30/22 20:45 21:05 21:07 Temperature 97.2 F L Pulse Rate 57 L 58 L Respiratory 16 20 20 Rate Blood Pressure 134/84 134/83 O2 Sat by Pulse 98 97 Oximetry - Reevaluation(s) Reevaluation #1: 07/30/22 23:00 Patient remains alert and breathing comfortably with a normal room air oxygen saturation and clear breath sounds bilaterally. Patient denies development of any pain or new symptoms while in the ED. Patient and are aware the patient's test results, and they both feel comfortable with the patient being discharged home at this time. Patient was counseled about dyspnea, and he was clearly explained return and follow-up instructions. Patient feels comfortable with this plan. Patient was instructed to follow up closely with his primary care provider. EKG Findings - EKG Comments: EKG Findings:: ED physician interpretation: Sinus bradycardia, ventricular rate of 53 bpm, no ectopy, normal VA and QRS intervals, normal QT interval, normal axis, no ST or T-wave abnormality Medical Decision Making - Medical Decision Making Was pt. sent in by a medical professional or institution (, PA, EMBROIDERY SPECIALIST, urgent care, hospital, or retirement...) When possible be specific @ -[No] Did you speak to anyone other than the patient for history (EMS, parent, family, police, friend...)? What history was obtained from this source @ -[No] Did you review nursing and triage notes (agree or disagree)? Why? @ -[I reviewed and agree with nursing and triage notes] Were old charts reviewed (outside hosp., previous admission, EMS record, old EKG, old radiological studies, urgent care reports/EKG's, retirement records)? Report findings @ -[No old charts were reviewed] Differential Diagnosis (chest pain, altered mental status, abdominal pain women, abdominal pain men, vaginal bleeding, weakness, fever, dyspnea, syncope, headache, dizziness, GI bleed, back pain, seizure, CVA, palpatations, mental health)? @ -Differential Dyspnea: Coronary syndrome, arrhythmia, tamponade, asthma, COPD, pulmonary embolism, pneumonia, pneumothorax, pulmonary effusion, anemia, neuromuscular, this is not meant to be an all-inclusive list. EKG interpreted by me (3pts min.). @ -[As above] X-rays interpreted by me (1pt min.). @ -Negative chest x-ray CT interpreted by me (1pt min.). @ -No U/S interpreted by me (1pt. min.). @ -[None done] What testing was considered but not performed or refused? (CT, X-rays, U/S, labs)? Why? @ -[None] What meds were considered but not given or refused? Why? @ -[None] Did you discuss the management of the patient with other professionals (professionals i.e. , PA, EMBROIDERY SPECIALIST, lab, RT, psych nurse, director of social media marketing, independent living instructor, teacher, aviation safety officer, case finisher)? Give summary @ -[No] Was smoking cessation discussed for >3mins.? @ -[No] Was critical care preformed (if so, how long)? @ -[No] Were there social determinants of health that impacted care today? How? (Homel essness, low income, unemployed, alcoholism, drug addiction, transportation, low edu. Level, literacy, decrease access to med. care, longterm, rehab)? @ -[No] Was there de-escalation of care discussed even if they declined (Discuss DNR or withdrawal of care, Hospice)? DNR status @ -[No] What co-morbidities impacted this encounter? (DM, HTN, Smoking, COPD, CAD, Cancer, CVA, ARF, Chemo, Hep., AIDS, mental health diagnosis, sleep apnea, morbid obesity)? @ -Recent myocardial infarction Was patient admitted / discharged? Hospital course, mention meds given and route, prescriptions, significant lab abnormalities, going to OR and other pertinent info. @ -Patient's d-dimer was minimally elevated, but CT angiography chest with IV contrast is negative. The rest of the patient's labs are fairly unremarkable, including a normal troponin and BNP. Patient is breathing comfortably in the ED with clear breath sounds bilaterally and a normal room air oxygen saturation. I do not suspect an emergent medical condition at this time. Will discharge patient home with his at this time. Patient was instructed to follow up closely with his primary care provider, as well as his manager practice. Patient feels comfortable with this plan. Undiagnosed new problem with uncertain prognosis? @ -[No] Drug Therapy requiring intensive monitoring for toxicity (Heparin, Nitro, Insulin, Cardizem)? @ -[No] Were any procedures done? @ -[No] Diagnosis/symptom? @ -Dyspnea Acute, or Chronic, or Acute on Chronic? @ -Acute Uncomplicated (without systemic symptoms) or Complicated (systemic symptoms)? @ -Uncomplicated Side effects of treatment? @ -[No] Exacerbation, Progression, or Severe Exacerbation? @ -[No] Poses a threat to life or bodily function? How? (Chest pain, [place], [place], pneumonia, PE, COPD, DKA, ARF, appy, cholecystitis, CVA, Diverticulitis, Homicidal, Suicidal, threat to staff... and all critical care pts) @ -[No] - Lab Data Result diagrams: 07/30/22 21:19 07/30/22 21:19 Lab Results 07/30/22 07/30/22 07/30/22 Range/Units 21:19 21:19 21:19 WBC 12.8 H (3.8-10.6) k/uL RBC 5.15 (4.30-5.90) m/uL Hgb 15.3 (13.0-17.5) gm/dL Hct 45.8 (39.0-53.0) % MCV 88.9 (80.0-100.0) fL MCH 29.7 (25.0-35.0) pg MCHC 33.4 (31.0-37.0) g/dL RDW 13.3 (11.5-15.5) % Plt Count 226 (150-450) k/uL MPV 7.9 Neutrophils % (Manual) 64 % Lymphocytes % (Manual) 32 % Monocytes % (Manual) 4 % Neutrophils # (Manual) 8.19 H (1.3-7.7) k/uL Lymphocytes # (Manual) 4.10 (1.0-4.8) k/uL Monocytes # (Manual) 0.51 (0-1.0) k/uL Nucleated RBCs 0 (0-0) /100 WBC Manual Slide Review Performed PT 9.5 (9.0-12.0) sec INR 0.9 (<1.2) APTT 21.5 L (22.0-30.0) sec D-Dimer 0.66 H (<0.60) mg/L FEU Sodium 143 (137-145) mmol/L Potassium 4.1 (3.5-5.1) mmol/L Chloride 111 H (98-107) mmol/L Carbon Dioxide 24 (22-30) mmol/L Anion Gap 8 mmol/L BUN 16 (9-20) mg/dL Creatinine 0.97 (0.66-1.25) mg/dL Est GFR (CKD-EPI)AfAm >90 (>60 ml/min/1.73 sqM) Est GFR (CKD-EPI)NonAf 85 (>60 ml/min/1.73 sqM) Glucose 88 (74-99) mg/dL Calcium 9.1 (8.4-10.2) mg/dL Total Bilirubin 0.6 (0.2-1.3) mg/dL AST 61 H (17-59) U/L ALT 134 H (4-49) U/L Alkaline Phosphatase 127 H (38-126) U/L Troponin I (0.000-0.034) ng/mL NT-Pro-B Natriuret Pep pg/mL Total Protein 6.9 (6.3-8.2) g/dL Albumin 4.4 (3.5-5.0) g/dL 07/30/22 07/30/22 Range/Units 21:19 21:19 WBC (3.8-10.6) k/uL RBC (4.30-5.90) m/uL Hgb (13.0-17.5) gm/dL Hct (39.0-53.0) % MCV (80.0-100.0) fL MCH (25.0-35.0) pg MCHC (31.0-37.0) g/dL RDW (11.5-15.5) % Plt Count (150-450) k/uL MPV Neutrophils % (Manual) % Lymphocytes % (Manual) % Monocytes % (Manual) % Neutrophils # (Manual) (1.3-7.7) k/uL Lymphocytes # (Manual) (1.0-4.8) k/uL Monocytes # (Manual) (0-1.0) k/uL Nucleated RBCs (0-0) /100 WBC Manual Slide Review PT (9.0-12.0) sec INR (<1.2) APTT (22.0-30.0) sec D-Dimer (<0.60) mg/L FEU Sodium (137-145) mmol/L Potassium (3.5-5.1) mmol/L Chloride (98-107) mmol/L Carbon Dioxide (22-30) mmol/L Anion Gap mmol/L BUN (9-20) mg/dL Creatinine (0.66-1.25) mg/dL Est GFR (CKD-EPI)AfAm (>60 ml/min/1.73 sqM) Est GFR (CKD-EPI)NonAf (>60 ml/min/1.73 sqM) Glucose (74-99) mg/dL Calcium (8.4-10.2) mg/dL Total Bilirubin (0.2-1.3) mg/dL AST (17-59) U/L ALT (4-49) U/L Alkaline Phosphatase (38-126) U/L Troponin I <0.012 (0.000-0.034) ng/mL NT-Pro-B Natriuret Pep 77 pg/mL Total Protein (6.3-8.2) g/dL Albumin (3.5-5.0) g/dL - Radiology Data Chest x-ray: No acute process. No significant change from prior. CT angiography chest with IV contrast: No evidence of pulmonary embolism. No suspicious pulmonary mass. Disposition Clinical Impression: Dyspnea Disposition: HOME SELF-CARE Condition: Stable Instructions (If sedation given, give patient instructions): Dyspnea (ED) Additional Instructions: Return to the ER immediately should you develop increased shortness of breath, chest pain, a fever, vomiting, feeling dizzy or faint, or new or worsening symptoms. Follow up closely with your primary care provider. Is patient prescribed a controlled substance at d/c from ED?: No Referrals: Camron Diaz MD [Primary Care Provider] - 1-2 days Time of Disposition: 23:06
[2022-07-30 21:32] LABS: HCT 45.8 % (39.0-53.0); HGB 15.3 gm/dL (13.0-17.5); MCH 29.7 pg (25.0-35.0); MCHC 33.4 g/dL (31.0-37.0); MCV 88.9 fL (80.0-100.0); Mean Platelet Volume 7.9; Platelet Count 226 k/uL (150-450); RBC 5.15 m/uL (4.30-5.90); RDW 13.3 % (11.5-15.5); WBC 12.8 k/uL (3.8-10.6)
[2022-07-30 21:44] LABS: ALT 134 U/L (4-49); AST 61 U/L (17-59); African American GFR (CKD) >90 (>60 ml/min/1.73 sqM); Albumin 4.4 g/dL (3.5-5.0); Alkaline Phosphatase 127 U/L (38-126); Anion Gap 8 mmol/L; Blood Urea Nitrogen 16 mg/dL (9-20); Calcium 9.1 mg/dL (8.4-10.2); Carbon Dioxide 24 mmol/L (22-30); Chloride 111 mmol/L (98-107); Glucose 88 mg/dL (74-99); Non-African American GFR(CKD) 85 (>60 ml/min/1.73 sqM); Potassium 4.1 mmol/L (3.5-5.1); Sodium 143 mmol/L (137-145); Total Bilirubin 0.6 mg/dL (0.2-1.3); Total Protein 6.9 g/dL (6.3-8.2)
--- NOTE | 2022-07-30 21:50 | XR ---
EXAMINATION TYPE: XR chest 2V DATE OF EXAM: 07/30/2022 COMPARISON: Chest x-ray June 28, 2022 HISTORY: Difficulty in breathing. TECHNIQUE: Frontal and lateral views of the chest are obtained. FINDINGS: There is some chronic parenchymal changes bilaterally without suspicious new focal air spa ce opacity, pleural effusion, or pneumothorax seen. The cardiac silhouette size is stable and within normal limits. The osseous structures are intact. IMPRESSION: No acute process. No significant change from prior.
[2022-07-30 22:01] LABS: INR 0.9 (<1.2); Partial Thromboplastin Time 21.5 sec (22.0-30.0); Prothrombin Time 9.5 sec (9.0-12.0)
[2022-07-30 22:08] LABS: Monocytes # (M) 0.51 k/uL (0-1.0); Neutrophils # (M) 8.19 k/uL (1.3-7.7); Neutrophils % (M) 64 %; Nucleated Red Blood Cells 0 /100 WBC (0-0); Total Cells Counted 100
--- NOTE | 2022-07-30 22:49 | CT ---
EXAMINATION TYPE: CT angio chest DATE OF EXAM: 07/30/2022 COMPARISON: None HISTORY: SOB CT DLP: 437.7 mGycm Automated exposure control for dose reduction was used. CONTRAST: Performed with IV Contrast, patient injected with 100 mL of Isovue 370. There are Three-D postprocessed images. The lungs are clear of consolidation. No pleural effusion. No evidence of pericardial effusion. Heart size is fairly normal. There is no evidence of filling defect in the pulmonary arteries. There is no mediastinal adenopathy. There are no hilar masses. Thoracic ureter is intact. No aneurysm or dissection. There is some minor spurring in the thoracic spine. No compression fracture. Sternum is intact the up per abdominal soft tissues are intact. IMPRESSION: No evidence of pulmonary embolism. No suspicious pulmonary mass.
== END 2022-07-30 23:14 | disposition home or self-care (01) ==
LOC: EC 20:43
DX: R06.00 Dyspnea, unspecified (principal); I25.2 Old myocardial infarction; F17.200 Nicotine dependence, unspecified, uncomplicated
CPT/HCPCS: 36415; 93005; 85379; 83880; 80053; 84484; 85025; 85610; 85730; 71046; 71275; 99285; Q9967

== ENCOUNTER 2022-09-18 09:16 | Emergency (ER) | payer BC ==
[2022-09-18 09:25] VITALS: PULSE 59; TEMP 98.3
--- NOTE | 2022-09-18 09:46 | ED ---
General Adult HPI - General Chief complaint: Shortness of Breath Stated complaint: Dyspnea Time Seen by Provider: 09/18/22 09:27 Source: patient, RN notes reviewed Mode of arrival: ambulatory Limitations: no limitations - History of Present Illness Initial comments: Patient is a pleasant 62-year-old male presenting to the emergency department with dyspnea. Onset of symptoms was this morning while sitting in a recliner. Onset was fairly sudden. No chest discomfort. Patient did feel a little bit dizzy at the time. Patient also felt a little bit dizzy and is waiting to the emergency department. No history of similar symptoms previously. No chest discomfort. No leg pain or leg swelling. No cough or fever. - Related Data Home Medications Medication Instructions Recorded Confirmed Nicotine 14Mg/24Hr Patch [Habitrol] 1 patch TRANSDERM DAILY PRN 07/30/22 07/30/22 Previous Rx's Medication Instructions Recorded Aspirin 81 mg PO DAILY 30 Days #30 tab 06/30/22 Atorvastatin [Lipitor] 80 mg PO DAILY 30 Days #30 tab 06/30/22 Clopidogrel [Plavix] 75 mg PO DAILY 30 Days #30 tab 06/30/22 Losartan [Cozaar] 50 mg PO DAILY 30 Days #30 tab 06/30/22 Metoprolol Tartrate [Lopressor] 25 mg PO BID 30 Days #30 tab 06/30/22 Nitroglycerin Sl Tabs [Nitrostat] 0.4 mg SUBLINGUAL Q5M PRN #90 tab 06/30/22 Nirmatrelvir/Ritonavir [Paxlovid 3 each PO BID #30 tab 09/18/22 2X150 mg-100 mg (Eua)] Allergies Allergy/AdvReac Type Severity Reaction Status Date / Time No Known Allergies Allergy Verified 09/18/22 09:25 Review of Systems ROS Statement: Those systems with pertinent positive or pertinent negative responses have been documented in the HPI. ROS Other: All systems not noted in ROS Statement are negative. Constitutional: Denies: fever Eyes: Denies: eye pain ENT: Denies: ear pain Respiratory: Reports: as per HPI, dyspnea. Denies: cough Cardiovascular: Denies: chest pain Endocrine: Denies: fatigue Gastrointestinal: Denies: abdominal pain Genitourinary: Denies: dysuria Musculoskeletal: Denies: back pain Skin: Denies: rash Neurological: Reports: as per HPI. Denies: headache, weakness, numbness, paresthesias, confusion Past Medical History Past Medical History: Myocardial Infarction (PA) Additional Past Medical History / Comment(s): kidney stones History of Any Multi-Drug Resistant Organisms: None Reported Past Surgical History: Heart Catheterization With Stent, Orthopedic Surgery Additional Past Surgical History / Comment(s): shoulder shoulder Past Psychological History: No Psychological Hx Reported Smoking Status: Former smoker Past Alcohol Use History: Occasional Past Drug Use History: Marijuana General Exam Limitations: no limitations General appearance: alert, in no apparent distress Head exam: Present: atraumatic, normocephalic Eye exam: Present: normal appearance, PERRL, EOMI ENT exam: Present: normal oropharynx Neck exam: Present: normal inspection Respiratory exam: Present: normal lung sounds bilaterally. Absent: respiratory distress, wheezes Cardiovascular Exam: Present: regular rate, normal rhythm GI/Abdominal exam: Present: soft. Absent: tenderness, guarding Extremities exam: Present: normal inspection. Absent: pedal edema, calf tenderness Neurological exam: Present: alert, oriented X3, CN II-XII intact. Absent: motor sensory deficit Expanded Neurological exam: Present: protecting the airway Speech: Present: fluid speech Cranial nerves: EOM's Intact: Normal Sensory exam: Upper Extremity Light Touch: Normal, Lower Extremity Light Touch: Normal Motor strength exam: RUE: 5, LUE: 5, RLE: 5, LLE: 5 Eye Response: (4) open spontaneously Motor Response: (6) obeys commands Verbal Response: (5) oriented Psychiatric exam: Present: normal affect, normal mood Skin exam: Present: normal color Course Vital Signs 09/18/22 09:22 Temperature 98.3 F Pulse Rate 59 L Respiratory 24 Rate Blood Pressure 119/83 O2 Sat by Pulse 96 Oximetry EKG Findings - EKG Results: EKG: interpreted by ERMD, sinus rhythm, normal axis, normal QRS, normal ST/T EKG shows: bradycardia Medical Decision Making - Medical Decision Making Was pt. sent in by a medical professional or institution (, PA, SYNTHETIC DEPARTMENT SUPERVISOR, urgent care, hospital, or [place] health care facility...) When possible be specific @ -No Did you speak to anyone other than the patient for history (EMS, parent, family, police, friend...)? What history was obtained from this source @ -No Did you review nursing and triage notes (agree or disagree)? Why? @ -I reviewed and agree with nursing and triage notes Were old charts reviewed (outside hosp., previous admission, EMS record, old EKG, old radiological studies, urgent care reports/EKG's, [place] health care facility records)? Report findings @ -No old charts were reviewed Differential Diagnosis (chest pain, altered mental status, abdominal pain women, abdominal pain men, vaginal bleeding, weakness, fever, dyspnea, syncope, headache, dizziness, GI bleed, back pain, seizure, CVA, palpatations, mental health)? @ -Differential Dyspnea: Coronary syndrome, arrhythmia, tamponade, asthma, COPD, pulmonary embolism, pneumonia, pneumothorax, pulmonary effusion, anaphylaxis, diabetic ketoacidosis, flailed chest, pulmonary contusion, diaphragmatic rupture, anemia, neuromuscular, this is not meant to be an all-inclusive list. ] EKG interpreted by me (3pts min.). @ -As above X-rays interpreted by me (1pt min.). @ -Chest x-ray shows no acute process CT interpreted by me (1pt min.). @ -None done U/S interpreted by me (1pt. min.). @ -None done What testing was considered but not performed or refused? (CT, X-rays, U/S, labs)? Why? @ -None What meds were considered but not given or refused? Why? @ -None Did you discuss the management of the patient with other professionals (professionals i.e. , PA, SYNTHETIC DEPARTMENT SUPERVISOR, lab, RT, psych nurse, executive secretary social welfare, civil lawyer, teacher, correction officer supervisor, case assembler)? Give summary @ -No Was smoking cessation discussed for >3mins.? @ -No] Was critical care preformed (if so, how long)? @ [N] Were there social determinants of health that impacted care today? How? (Homelessness, low income, unemployed, alcoholism, drug addiction, transportation, low edu. Level, literacy, decrease access to med. care, fci, rehab)? @ [N] Was there de-escalation of care discussed even if they declined (Discuss DNR or withdrawal of care, Hospice)? DNR status @ [N] What co-morbidities impacted this encounter? (DM, HTN, Smoking, COPD, CAD, Cancer, CVA, ARF, Chemo, Hep., AIDS, mental health diagnosis, sleep apnea, morbid obesity)? @ [Non] Was patient admitted / discharged? Hospital course, mention meds given and route, prescriptions, significant lab abnormalities, going to OR and other pertinent info. @ [Patient reevaluated and updated. Family is also present. Prescription will be written as patient is a candidate for paxlovi] Undiagnosed new problem with uncertain prognosis? @ [N] Drug Therapy requiring intensive monitoring for toxicity (Heparin, Nitro, Insulin, Cardizem)? @ [N] Were any procedures done? @ [N] Diagnosis/symptom? @ [COVID-19 infectio] Acute, or Chronic, or Acute on Chronic? @ -Acute Uncomplicated (without systemic symptoms) or Complicated (systemic symptoms)? @ [defaul] Side effects of treatment? @ [N] Exacerbation, Progression, or Severe Exacerbation? @ [N] Poses a threat to life or bodily function? How? (Chest pain, USA, PA, pneumonia, PE, COPD, DKA, ARF, appy, cholecystitis, CVA, Diverticulitis, Homicidal, Suicidal, threat to staff... and all critical care pts) @ [N] - Lab Data Result diagrams: 09/18/22 09:50 09/18/22 09:50 Lab Results 09/18/22 09/18/22 09/18/22 Range/Units 09:50 09:50 09:50 WBC 11.4 H (3.8-10.6) k/uL RBC 4.83 (4.30-5.90) m/uL Hgb 14.4 (13.0-17.5) gm/dL Hct 43.3 (39.0-53.0) % MCV 89.7 (80.0-100.0) fL MCH 29.9 (25.0-35.0) pg MCHC 33.4 (31.0-37.0) g/dL RDW 13.4 (11.5-15.5) % Plt Count 269 (150-450) k/uL MPV 8.2 Neutrophils % 68 % Lymphocytes % 17 % Monocytes % 11 % Eosinophils % 1 % Basophils % 0 % Neutrophils # 7.7 (1.3-7.7) k/uL Lymphocytes # 1.9 (1.0-4.8) k/uL Monocytes # 1.2 H (0-1.0) k/uL Eosinophils # 0.1 (0-0.7) k/uL Basophils # 0.0 (0-0.2) k/uL PT 9.6 (9.0-12.0) sec INR 0.9 (<1.2) APTT 22.0 (22.0-30.0) sec D-Dimer 0.53 (<0.60) mg/L FEU Sodium 143 (137-145) mmol/L Potassium 4.2 (3.5-5.1) mmol/L Chloride 110 H (98-107) mmol/L Carbon Dioxide 25 (22-30) mmol/L Anion Gap 8 mmol/L BUN 14 (9-20) mg/dL Creatinine 0.70 (0.66-1.25) mg/dL Est GFR (CKD-EPI)AfAm >90 (>60 ml/min/1.73 sqM) Est GFR (CKD-EPI)NonAf >90 (>60 ml/min/1.73 sqM) Glucose 105 H (74-99) mg/dL Plasma Lactic Acid Lenny (0.7-2.0) mmol/L Calcium 9.3 (8.4-10.2) mg/dL Magnesium 2.0 (1.6-2.3) mg/dL Total Bilirubin 0.7 (0.2-1.3) mg/dL AST 44 (17-59) U/L ALT 83 H (4-49) U/L Alkaline Phosphatase 116 (38-126) U/L Troponin I (0.000-0.034) ng/mL NT-Pro-B Natriuret Pep pg/mL Total Protein 6.7 (6.3-8.2) g/dL Albumin 4.1 (3.5-5.0) g/dL Influenza Type A (PCR) (Not Detectd) Influenza Type B (PCR) (Not Detectd) RSV (PCR) (Not Detectd) SARS-CoV-2 (PCR) (Not Detectd) 09/18/22 09/18/22 09/18/22 Range/Units 09:50 09:50 09:50 WBC (3.8-10.6) k/uL RBC (4.30-5.90) m/uL Hgb (13.0-17.5) gm/dL Hct (39.0-53.0) % MCV (80.0-100.0) fL MCH (25.0-35.0) pg MCHC (31.0-37.0) g/dL RDW (11.5-15.5) % Plt Count (150-450) k/uL MPV Neutrophils % % Lymphocytes % % Monocytes % % Eosinophils % % Basophils % % Neutrophils # (1.3-7.7) k/uL Lymphocytes # (1.0-4.8) k/uL Monocytes # (0-1.0) k/uL Eosinophils # (0-0.7) k/uL Basophils # (0-0.2) k/uL PT (9.0-12.0) sec INR (<1.2) APTT (22.0-30.0) sec D-Dimer (<0.60) mg/L FEU Sodium (137-145) mmol/L Potassium (3.5-5.1) mmol/L Chloride (98-107) mmol/L Carbon Dioxide (22-30) mmol/L Anion Gap mmol/L BUN (9-20) mg/dL Creatinine (0.66-1.25) mg/dL Est GFR (CKD-EPI)AfAm (>60 ml/min/1.73 sqM) Est GFR (CKD-EPI)NonAf (>60 ml/min/1.73 sqM) Glucose (74-99) mg/dL Plasma Lactic Acid Lenny 1.3 (0.7-2.0) mmol/L Calcium (8.4-10.2) mg/dL Magnesium (1.6-2.3) mg/dL Total Bilirubin (0.2-1.3) mg/dL AST (17-59) U/L ALT (4-49) U/L Alkaline Phosphatase (38-126) U/L Troponin I <0.012 (0.000-0.034) ng/mL NT-Pro-B Natriuret Pep 117 pg/mL Total Protein (6.3-8.2) g/dL Albumin (3.5-5.0) g/dL Influenza Type A (PCR) (Not Detectd) Influenza Type B (PCR) (Not Detectd) RSV (PCR) (Not Detectd) SARS-CoV-2 (PCR) (Not Detectd) 09/18/22 Range/Units 09:50 WBC (3.8-10.6) k/uL RBC (4.30-5.90) m/uL Hgb (13.0-17.5) gm/dL Hct (39.0-53.0) % MCV (80.0-100.0) fL MCH (25.0-35.0) pg MCHC (31.0-37.0) g/dL RDW (11.5-15.5) % Plt Count (150-450) k/uL MPV Neutrophils % % Lymphocytes % % Monocytes % % Eosinophils % % Basophils % % Neutrophils # (1.3-7.7) k/uL Lymphocytes # (1.0-4.8) k/uL Monocytes # (0-1.0) k/uL Eosinophils # (0-0.7) k/uL Basophils # (0-0.2) k/uL PT (9.0-12.0) sec INR (<1.2) APTT (22.0-30.0) sec D-Dimer (<0.60) mg/L FEU Sodium (137-145) mmol/L Potassium (3.5-5.1) mmol/L Chloride (98-107) mmol/L Carbon Dioxide (22-30) mmol/L Anion Gap mmol/L BUN (9-20) mg/dL Creatinine (0.66-1.25) mg/dL Est GFR (CKD-EPI)AfAm (>60 ml/min/1.73 sqM) Est GFR (CKD-EPI)NonAf (>60 ml/min/1.73 sqM) Glucose (74-99) mg/dL Plasma Lactic Acid Lenny (0.7-2.0) mmol/L Calcium (8.4-10.2) mg/dL Magnesium (1.6-2.3) mg/dL Total Bilirubin (0.2-1.3) mg/dL AST (17-59) U/L ALT (4-49) U/L Alkaline Phosphatase (38-126) U/L Troponin I (0.000-0.034) ng/mL NT-Pro-B Natriuret Pep pg/mL Total Protein (6.3-8.2) g/dL Albumin (3.5-5.0) g/dL Influenza Type A (PCR) Not Detected (Not Detectd) Influenza Type B (PCR) Not Detected (Not Detectd) RSV (PCR) Not Detected (Not Detectd) SARS-CoV-2 (PCR) Detected A (Not Detectd) Disposition Clinical Impression: COVID-19 Disposition: ADMITTED IP TO THIS HOSP Instructions (If sedation given, give patient instructions): COVID-19 (Coronavirus Disease 2019) (ED) Additional Instructions: [id number] vitamin C, vitamin D, and zinc. Prescription has been sent to pharmacy. Please hold your losartan while taking the prescribed medication. Return for difficulty breathing, not tolerating fluids, worsening symptoms or other concerns. Prescriptions: Nirmatrelvir/Ritonavir [Paxlovid 2X150 mg-100 mg (Eua)] 3 each PO BID #30 tab Is patient prescribed a controlled substance at d/c from ED?: No Referrals: Camron Diaz MD [Primary Care Provider] - 1-2 days Time of Disposition: 11:21
[2022-09-18 09:59] LABS: Basophils % (A) 0 %; Eosinophils # (A) 0.1 k/uL (0-0.7); Eosinophils % (A) 1 %; HCT 43.3 % (39.0-53.0); HGB 14.4 gm/dL (13.0-17.5); Lymphocytes # (A) 1.9 k/uL (1.0-4.8); Lymphocytes % (A) 17 %; MCH 29.9 pg (25.0-35.0); MCHC 33.4 g/dL (31.0-37.0); MCV 89.7 fL (80.0-100.0); Mean Platelet Volume 8.2; Monocytes # (A) 1.2 k/uL (0-1.0); Monocytes % (A) 11 %; Neutrophils # (A) 7.7 k/uL (1.3-7.7); Neutrophils % (A) 68 %; Platelet Count 269 k/uL (150-450); RBC 4.83 m/uL (4.30-5.90); RDW 13.4 % (11.5-15.5); WBC 11.4 k/uL (3.8-10.6)
--- NOTE | 2022-09-18 10:02 | XR ---
EXAMINATION TYPE: XR chest 2V DATE OF EXAM: 09/18/2022 COMPARISON: CTA chest and two-view x-ray July 30, 2022 HISTORY: Difficulty in breathing. TECHNIQUE: Frontal and lateral views of the chest are obtained. FINDINGS: There is mild chronic parenchymal change without suspicious new focal air space opacity, p leural effusion, or pneumothorax seen. The cardiac silhouette size is stable and upper limits of nor mal. The osseous structures are intact. IMPRESSION: No acute pulmonary process. No significant change from recent priors.
[2022-09-18 10:12] LABS: ALT 83 U/L (4-49); AST 44 U/L (17-59); African American GFR (CKD) >90 (>60 ml/min/1.73 sqM); Albumin 4.1 g/dL (3.5-5.0); Alkaline Phosphatase 116 U/L (38-126); Anion Gap 8 mmol/L; Blood Urea Nitrogen 14 mg/dL (9-20); Calcium 9.3 mg/dL (8.4-10.2); Carbon Dioxide 25 mmol/L (22-30); Chloride 110 mmol/L (98-107); Glucose 105 mg/dL (74-99); INR 0.9 (<1.2); Non-African American GFR(CKD) >90 (>60 ml/min/1.73 sqM); Potassium 4.2 mmol/L (3.5-5.1); Prothrombin Time 9.6 sec (9.0-12.0); Sodium 143 mmol/L (137-145); Total Bilirubin 0.7 mg/dL (0.2-1.3); Total Protein 6.7 g/dL (6.3-8.2)
--- NOTE | 2022-09-18 11:22 | ED ---
Medical Decision Making - Lab Data Result diagrams: 09/18/22 09:50 09/18/22 09:50 Lab Results 09/18/22 09/18/22 09/18/22 Range/Units 09:50 09:50 09:50 WBC 11.4 H (3.8-10.6) k/uL RBC 4.83 (4.30-5.90) m/uL Hgb 14.4 (13.0-17.5) gm/dL Hct 43.3 (39.0-53.0) % MCV 89.7 (80.0-100.0) fL MCH 29.9 (25.0-35.0) pg MCHC 33.4 (31.0-37.0) g/dL RDW 13.4 (11.5-15.5) % Plt Count 269 (150-450) k/uL MPV 8.2 Neutrophils % 68 % Lymphocytes % 17 % Monocytes % 11 % Eosinophils % 1 % Basophils % 0 % Neutrophils # 7.7 (1.3-7.7) k/uL Lymphocytes # 1.9 (1.0-4.8) k/uL Monocytes # 1.2 H (0-1.0) k/uL Eosinophils # 0.1 (0-0.7) k/uL Basophils # 0.0 (0-0.2) k/uL PT 9.6 (9.0-12.0) sec INR 0.9 (<1.2) APTT 22.0 (22.0-30.0) sec D-Dimer 0.53 (<0.60) mg/L FEU Sodium 143 (137-145) mmol/L Potassium 4.2 (3.5-5.1) mmol/L Chloride 110 H (98-107) mmol/L Carbon Dioxide 25 (22-30) mmol/L Anion Gap 8 mmol/L BUN 14 (9-20) mg/dL Creatinine 0.70 (0.66-1.25) mg/dL Est GFR (CKD-EPI)AfAm >90 (>60 ml/min/1.73 sqM) Est GFR (CKD-EPI)NonAf >90 (>60 ml/min/1.73 sqM) Glucose 105 H (74-99) mg/dL Plasma Lactic Acid Lenny (0.7-2.0) mmol/L Calcium 9.3 (8.4-10.2) mg/dL Magnesium 2.0 (1.6-2.3) mg/dL Total Bilirubin 0.7 (0.2-1.3) mg/dL AST 44 (17-59) U/L ALT 83 H (4-49) U/L Alkaline Phosphatase 116 (38-126) U/L Troponin I (0.000-0.034) ng/mL NT-Pro-B Natriuret Pep pg/mL Total Protein 6.7 (6.3-8.2) g/dL Albumin 4.1 (3.5-5.0) g/dL Influenza Type A (PCR) (Not Detectd) Influenza Type B (PCR) (Not Detectd) RSV (PCR) (Not Detectd) SARS-CoV-2 (PCR) (Not Detectd) 09/18/22 09/18/22 09/18/22 Range/Units 09:50 09:50 09:50 WBC (3.8-10.6) k/uL RBC (4.30-5.90) m/uL Hgb (13.0-17.5) gm/dL Hct (39.0-53.0) % MCV (80.0-100.0) fL MCH (25.0-35.0) pg MCHC (31.0-37.0) g/dL RDW (11.5-15.5) % Plt Count (150-450) k/uL MPV Neutrophils % % Lymphocytes % % Monocytes % % Eosinophils % % Basophils % % Neutrophils # (1.3-7.7) k/uL Lymphocytes # (1.0-4.8) k/uL Monocytes # (0-1.0) k/uL Eosinophils # (0-0.7) k/uL Basophils # (0-0.2) k/uL PT (9.0-12.0) sec INR (<1.2) APTT (22.0-30.0) sec D-Dimer (<0.60) mg/L FEU Sodium (137-145) mmol/L Potassium (3.5-5.1) mmol/L Chloride (98-107) mmol/L Carbon Dioxide (22-30) mmol/L Anion Gap mmol/L BUN (9-20) mg/dL Creatinine (0.66-1.25) mg/dL Est GFR (CKD-EPI)AfAm (>60 ml/min/1.73 sqM) Est GFR (CKD-EPI)NonAf (>60 ml/min/1.73 sqM) Glucose (74-99) mg/dL Plasma Lactic Acid Lenny 1.3 (0.7-2.0) mmol/L Calcium (8.4-10.2) mg/dL Magnesium (1.6-2.3) mg/dL Total Bilirubin (0.2-1.3) mg/dL AST (17-59) U/L ALT (4-49) U/L Alkaline Phosphatase (38-126) U/L Troponin I <0.012 (0.000-0.034) ng/mL NT-Pro-B Natriuret Pep 117 pg/mL Total Protein (6.3-8.2) g/dL Albumin (3.5-5.0) g/dL Influenza Type A (PCR) (Not Detectd) Influenza Type B (PCR) (Not Detectd) RSV (PCR) (Not Detectd) SARS-CoV-2 (PCR) (Not Detectd) 09/18/22 Range/Units 09:50 WBC (3.8-10.6) k/uL RBC (4.30-5.90) m/uL Hgb (13.0-17.5) gm/dL Hct (39.0-53.0) % MCV (80.0-100.0) fL MCH (25.0-35.0) pg MCHC (31.0-37.0) g/dL RDW (11.5-15.5) % Plt Count (150-450) k/uL MPV Neutrophils % % Lymphocytes % % Monocytes % % Eosinophils % % Basophils % % Neutrophils # (1.3-7.7) k/uL Lymphocytes # (1.0-4.8) k/uL Monocytes # (0-1.0) k/uL Eosinophils # (0-0.7) k/uL Basophils # (0-0.2) k/uL PT (9.0-12.0) sec INR (<1.2) APTT (22.0-30.0) sec D-Dimer (<0.60) mg/L FEU Sodium (137-145) mmol/L Potassium (3.5-5.1) mmol/L Chloride (98-107) mmol/L Carbon Dioxide (22-30) mmol/L Anion Gap mmol/L BUN (9-20) mg/dL Creatinine (0.66-1.25) mg/dL Est GFR (CKD-EPI)AfAm (>60 ml/min/1.73 sqM) Est GFR (CKD-EPI)NonAf (>60 ml/min/1.73 sqM) Glucose (74-99) mg/dL Plasma Lactic Acid Lenny (0.7-2.0) mmol/L Calcium (8.4-10.2) mg/dL Magnesium (1.6-2.3) mg/dL Total Bilirubin (0.2-1.3) mg/dL AST (17-59) U/L ALT (4-49) U/L Alkaline Phosphatase (38-126) U/L Troponin I (0.000-0.034) ng/mL NT-Pro-B Natriuret Pep pg/mL Total Protein (6.3-8.2) g/dL Albumin (3.5-5.0) g/dL Influenza Type A (PCR) Not Detected (Not Detectd) Influenza Type B (PCR) Not Detected (Not Detectd) RSV (PCR) Not Detected (Not Detectd) SARS-CoV-2 (PCR) Detected A (Not Detectd) Disposition Clinical Impression: COVID-19 Disposition: ADMITTED IP TO THIS HOSP Instructions (If sedation given, give patient instructions): COVID-19 (Coronavirus Disease 2019) (ED) Additional Instructions: [id number] vitamin C, vitamin D, and zinc. Prescription has been sent to pharmacy. Please hold your Lipitor while taking the prescribed medication. Return for difficulty breathing, not tolerating fluids, worsening symptoms or other concerns. Prescriptions: Nirmatrelvir/Ritonavir [Paxlovid 2X150 mg-100 mg (Eua)] 3 each PO BID #30 tab Is patient prescribed a controlled substance at d/c from ED?: No Referrals: Camron Diaz MD [Primary Care Provider] - 1-2 days Time of Disposition: 11:22
[2022-09-18 11:25] VITALS: BP 115/88; RESP 18
== END 2022-09-18 11:29 | disposition other institution (70) ==
LOC: EC 09:16
DX: U07.1 COVID-19 (principal); I25.2 Old myocardial infarction; F12.90 Cannabis use, unspecified, uncomplicated; Z87.891 Personal history of nicotine dependence
CPT/HCPCS: 36415; 71046; 80053; 83605; 83735; 83880; 84484; 85025; 85379; 85610; 85730; 87636; 93005; 99285

== ENCOUNTER → 2023-01-24 | Outpatient (CLI) | payer BC ==
[2023-01-24 16:49] LABS: Blood Urea Nitrogen 12.5 mg/dL (9.0-27.0); Calcium 9.7 mg/dL (8.7-10.3); Carbon Dioxide 26.6 mmol/L (21.6-31.8); Chloride 107 mmol/L (96-109); Glucose 84 mg/dL (70-110); Potassium 4.7 mmol/L (3.5-5.5); Sodium 142 mmol/L (135-145)
[2023-01-24 17:29] LABS: INR <0.93 sec (0.93-1.11); Prothrombin Time 9.9 sec (9.9-11.9)
[2023-01-24 17:55] LABS: Basophils # (A) 0.06 X 10*3/uL (0.00-0.10); Basophils % (A) 0.5 %; Eosinophils # (A) 0.08 X 10*3/uL (0.04-0.35); Eosinophils % (A) 0.6 %; HCT 45.6 % (39.6-50.0); HGB 14.5 d/dL (13.0-17.0); Lymphocytes % (A) 19.7 %; MCH 30.3 pg (27.0-32.0); MCHC 31.8 d/dL (32.0-37.0); MCV 95.2 FL (80.0-97.0); Mean Platelet Volume 11.2 FL (9.5-12.2); Monocytes # (A) 0.94 X 10*3/uL (0.20-1.00); Monocytes % (A) 7.4 %; NRBC Per 100 WBC 0 X 10*3/uL (0.00-0.01); Neutrophils # (A) 9.08 X 10*3/uL (1.80-7.70); Neutrophils % (A) 71.3 %; Platelet Count 282 X 10*3/uL (140-440); RBC 4.79 X 10*6/uL (4.40-5.60); RDW 13.4 % (11.5-14.5); WBC 12.72 X 10*3/uL (4.50-10.00)
== END | disposition home or self-care (01) ==
LOC: LABWHC1 11:28
PROVIDERS: ATTEND Nurse Practitioner
DX: I25.10 Atherosclerotic heart disease of native coronary artery without angina pectoris (principal)
CPT/HCPCS: 36415; 80048; 85025; 85610

== ENCOUNTER → 2023-01-26 | Day surgery (SDC) | payer BC ==
[2023-01-25 08:54] VITALS: BMI 29.2
[~2023-01-26] MED LIST: ALPRAZolam 0.25 MG TAB PO PRN; ALPRAZolam 0.5 MG TAB PO PRN; ASPIRIN 325 MG TAB PO STA; ATORVASTATIN 80 MG TAB PO STA; CLOPIDOGREL 75 MG TAB ONE; CLOPIDOGREL 75 MG TAB PO ONE; HEPARIN SODIUM 1,000 UN/ML (10ML VL) ONE; HEPARIN SODIUM,PORCINE 10,000 UNIT in SODIUM CHLORIDE 0.9% 1,000 ML IRRIGATION PRN; HEPARIN SODIUM,PORCINE 2,500 UNIT in SODIUM CHLORIDE 0.9% 250 ML IRRIGATION PRN; IOPAMIDOL-370 100ML BTL INJ ONE; LIDOCAINE 1% INJ 10MG/ML (20 ML MDV) ONE; LIDOCAINE 1% INJ 10MG/ML (20 ML MDV) SQ ONE; NITROGLYCERIN SL TABS 0.4 MG TAB SUBLINGUAL PRN; SODIUM CHLORIDE 0.9% 1,000 ML IV ONE; SODIUM CHLORIDE 0.9% 1,000 ML IV SCH; VERAPAMIL 2.5 MG/ML 2 ML AMP ONE; VERAPAMIL SYRINGE (5 MG/10 ML) INTRAARTER ONE
[2023-01-26 06:53] VITALS: BP 135/75; PULSE 62; RESP 16; TEMP 97.8
[2023-01-26 07:02] LABS: Basophils # (A) 0.1 k/uL (0-0.2); Basophils % (A) 0 %; Eosinophils # (A) 0.2 k/uL (0-0.7); Eosinophils % (A) 1 %; HCT 44.9 % (39.0-53.0); Lymphocytes # (A) 2.5 k/uL (1.0-4.8); Lymphocytes % (A) 19 %; MCH 30.8 pg (25.0-35.0); MCHC 33.3 g/dL (31.0-37.0); MCV 92.5 fL (80.0-100.0); Mean Platelet Volume 7.9; Monocytes # (A) 1.3 k/uL (0-1.0); Monocytes % (A) 10 %; Neutrophils # (A) 8.4 k/uL (1.3-7.7); Neutrophils % (A) 65 %; Platelet Count 232 k/uL (150-450); RBC 4.85 m/uL (4.30-5.90); RDW 13.4 % (11.5-15.5); WBC 12.9 k/uL (3.8-10.6)
[2023-01-26] MEDS: MIDAZOLAM 2 MG/2 ML VIAL IVP ONE ×2 (07:40→07:46)
[2023-01-26] MEDS: HEPARIN SODIUM 1,000 UN/ML (10ML VL) IV ONE ×2 (07:53→08:00)
[2023-01-26] MEDS: NITROGLYCERIN 1000MCG/10ML SYRINGE INTRACORON ONE ×2 (08:22→08:29)
--- NOTE | 2023-01-26 09:45 | CC ---
CARDIAC CATHETERIZATION REPORT PROCEDURES PERFORMED: 1. Left heart catheterization and coronary angiography. 2. PTCA and stenting of the mid LAD with a drug-eluting stent. 3. Intravascular ultrasound of LAD. PERFORMED BY: Dr. Michelle Osuna. ANESTHESIA: Moderate conscious sedation time was 68 minutes. The patient was administered Versed,. Oxygen saturation, hemodynamics, and EKG were monitored closely. This patient received a total of 7000 units of heparin and he weighs about 95 kg. ACT on two occasions was out of range. The third one was 234. I think this is a machine error. He received 300 mg of Plavix. He was already on aspirin and Plavix. The patient is advised to be on a combination of aspirin and Plavix without interruption for 1 year. CLINICAL INFORMATION: Mr. Juan Schmidt is a 62-year-old gentleman with history of CAD, [id number] [place] in June, involving mid LAD, for which he had a PCI performed. He had moderate noncritical disease in other vessels. He has a right-dominant system. He has been having increasing symptoms of angina. He had a negative stress test in August of this year, but continued to have angina, strongly suggestive of his previous episode in June 2022. Therefore, he was brought in for a cardiac cath. PROCEDURE NOTE: Under local anesthesia and strict aseptic precautions with a Micropuncture needle technique, a 6-Yakut introducer was placed in the right radial artery. Using a JL3.5 and JR4 catheters, I performed coronary angiography and the same right catheter was used to check LV pressures. LV-gram was not performed. Subsequently, I performed PCI of the mid LAD, which was a 95% stenosis, but just proximal to the previously placed stent before the origin of the second diagonal branch that was of about 1.6 mm caliber. Following the procedure, the TR band was taken out and saturation in the finger was 96%. The patient tolerated the procedure well without complication. CARDIAC CATHETERIZATION FINDINGS: The left ventricular end-diastolic pressure was about 9 mmHg without any gradient across the aortic valve. CORONARY ANGIOGRAPHY FINDINGS: Right coronary artery: Dominant vessel, has minor irregularities of about 30% to 40%, distally bifurcates into PDA and PLV, both of which have minor diffuse disease, but no significant stenosis and no significant change compared to June 2022. Left main coronary artery: Short patent disease-free vessel that bifurcates into LAD and circumflex. Left anterior descending coronary artery: This vessel has about a 95% mid lesion just proximal to the previously placed stent and proximal to the origin of the diagonal branch. Before the 99% stenosis, there is also an area of about 60% narrowing and that also involves first diagonal branch. Beyond the previously placed stent, which is widely patent, there is mild diffuse disease noted. Left posterior circumflex coronary artery: Technically, a nondominant vessel, gives off a good-sized obtuse marginal that runs laterally, has minor irregularities. No significant disease. FINAL IMPRESSION: This patient has a right-dominant system. Normal filling pressures. No gradient. There is a 95% to 99% stenosis involving the mid LAD, and proximal to it is a 60% narrowing, and this is located just before the previously placed stent, which is widely patent and also before the second diagonal branch. This is the culprit lesion. The circumflex, which is a nondominant and dominant RCA have minor noncritical disease. RECOMMENDATIONS: I recommended PCI of LAD and performed this in the same setting. PCI PROCEDURE DETAILS: I used a JL3.5 guide catheter and a long Runthrough wire. I crossed the lesion in the LAD, kept it distally. A short Whisper straight wire was used to cross into the diagonal branch. I performed predilatation with a 3.0 caliber 15 mm long NC Trek balloon. The predilatation was performed into the previous stent. I then deployed an 18 mm long 4.0 caliber Xience stent at 14 atmospheres. The patient had chest pain and subtle J-point prominence in precordial leads. Following this, I advanced the same balloon into the previous stent and also expanded this at 13 atmospheres, so the entire stent was dilated with a 4.0 balloon. I then performed intravascular ultrasound, which revealed full expansion of the stent and good apposition. The results were excellent angiographically and also on the basis of ultrasound. The details were discussed with the patient and his . I expect that he will be discharged later on today if he remains stable and I will see him in the office within 1 week. He will be on aspirin and Plavix without interruption for a total of 1 year. MMODL / IJN: [id number] /
== END ==
LOC: CATHCVL 05:34
PROVIDERS: ATTEND Internal Medicine Interventional Cardiology
DX: I25.118 Atherosclerotic heart disease of native coronary artery with other forms of angina pectoris (principal); E78.5 Hyperlipidemia, unspecified; F17.210 Nicotine dependence, cigarettes, uncomplicated; Z79.899 Other long term (current) drug therapy
CPT/HCPCS: 92978; 93458; 85025; C9600; C1769 ×4; C1887; C1894; C1753; C1874; C1725; J2250; J2001; J1644; Q9967; J2305

== ENCOUNTER → 2023-08-06 | Outpatient (CLI) | payer BC ==
[2023-08-06 15:51] LABS: BUN/Creat Ratio 16.67 Ratio (12.00-20.00); Calcium 9.5 mg/dL (8.7-10.3); Carbon Dioxide 23.9 mmol/L (21.6-31.8); Chloride 107 mmol/L (96-109); Glucose 96 mg/dL (70-110); Magnesium 2.2 mg/dL (1.5-2.4); Potassium 4.6 mmol/L (3.5-5.5); Sodium 142 mmol/L (135-145)
== END | disposition home or self-care (01) ==
LOC: LABWHC1 09:18
PROVIDERS: ATTEND Internal Medicine Interventional Cardiology
DX: I10 Essential (primary) hypertension (principal); I25.10 Atherosclerotic heart disease of native coronary artery without angina pectoris
CPT/HCPCS: 36415; 80048; 83735; 84443

== ENCOUNTER 2023-08-30 07:03 | Day surgery (SDC) | payer BC ==
[2023-08-28 10:18] VITALS: BMI 28.3
[~2023-08-30 07:03] MED LIST changes: -CLOPIDOGREL 75 MG TAB ONE; -CLOPIDOGREL 75 MG TAB PO ONE; -HEPARIN SODIUM 1,000 UN/ML (10ML VL) ONE; +HEPARIN SODIUM,PORCINE (1 ML) 2,500 UNIT in SODIUM CHLORIDE 0.9% 250 ML IRRIGATION PRN; -HEPARIN SODIUM,PORCINE 2,500 UNIT in SODIUM CHLORIDE 0.9% 250 ML IRRIGATION PRN; -IOPAMIDOL-370 100ML BTL INJ ONE; -LIDOCAINE 1% INJ 10MG/ML (20 ML MDV) ONE; -LIDOCAINE 1% INJ 10MG/ML (20 ML MDV) SQ ONE; -SODIUM CHLORIDE 0.9% 1,000 ML IV ONE; -SODIUM CHLORIDE 0.9% 1,000 ML IV SCH; -VERAPAMIL 2.5 MG/ML 2 ML AMP ONE; -VERAPAMIL SYRINGE (5 MG/10 ML) INTRAARTER ONE
[2023-08-30] MEDS: SODIUM CHLORIDE 0.9% 1,000 ML in EMPTY BAG 1 BAG IV SCH (07:38)
[2023-08-30 07:46] VITALS: RESP 18; TEMP 97.7
[2023-08-30 07:53] LABS: HCT 43.3 % (39.0-53.0); HGB 14.4 gm/dL (13.0-17.5); MCHC 33.3 g/dL (31.0-37.0); MCV 92.9 fL (80.0-100.0); Platelet Count 233 k/uL (150-450); RBC 4.66 m/uL (4.30-5.90); RDW 13.4 % (11.5-15.5); WBC 14.2 k/uL (3.8-10.6)
[2023-08-30] MEDS ORDERED: VERAPAMIL 2.5 MG/ML 2 ML AMP ONE (08:47)
[2023-08-30] MEDS ORDERED: LIDOCAINE 1% INJ 10MG/ML (20 ML MDV) ONE (08:47)
[2023-08-30] MEDS ORDERED: HEPARIN SODIUM 1,000 UN/ML (10ML VL) ONE (09:05)
[2023-08-30] MEDS: MIDAZOLAM 2 MG/2 ML VIAL IVP ONE (09:06)
[2023-08-30] MEDS: LIDOCAINE 1% INJ 10MG/ML (20 ML MDV) SQ ONE (09:13)
[2023-08-30] MEDS: VERAPAMIL SYRINGE (5 MG/10 ML) INTRAARTER ONE (09:14)
[2023-08-30] MEDS: HEPARIN SODIUM 1,000 UN/ML (10ML VL) IV ONE (09:16)
[2023-08-30] MEDS: PHENYLEPHRINE 10 MG/ML VIAL IV ONE (09:20)
[2023-08-30 09:23] LABS: Eosinophils # (M) 0.28 k/uL (0-0.7); Lymphocytes # (M) 2.27 k/uL (1.0-4.8); Monocytes # (M) 0.28 k/uL (0-1.0); Neutrophils # (M) 11.36 k/uL (1.3-7.7); Neutrophils % (M) 80 %; Nucleated Red Blood Cells 0 /100 WBC (0-0); RBC Morphology Normal; Total Cells Counted 100
[2023-08-30] MEDS: NITROGLYCERIN 1000MCG/10ML SYRINGE INTRACORON ONE (09:38)
[2023-08-30] MEDS: IOPAMIDOL-370 100ML BTL INJ ONE (09:40)
[2023-08-30] MEDS ORDERED: RX INFO: IV CONTRAST WAS GIVEN 1 EACH MISC MISCELLANE PRN (09:51)
[2023-08-30] MEDS: SODIUM CHLORIDE 0.9% 1,000 ML IV ONE (11:00)
--- NOTE | 2023-08-30 12:05 | CT ---
CTA CHEST EXAMINATION TYPE: CT angio chest DATE OF EXAM: 08/30/2023 INDICATION: eval aorta CT DLP: 769.7 mGycm, Automated exposure control for dose reduction was used. CONTRAST: Patient injected with 80 mL of Isovue 370. COMPARISON: 07/30/2022 TECHNIQUE: CT of the chest is performed on a spiral scan at 2 mm thick sections. Study is performed with intravenous contrast timed for evaluation for thoracic aorta. This will limit additional portio ns of the evaluation. 3-D MIP images reconstructed by the technologist are reviewed on the computer in the coronal and sagittal planes. FINDINGS: No mediastinal or hilar adenopathy enlarged by CT criteria is evident. There is a three-vessel arch. The left vertebral artery is slightly more prominent than the right. The ascending aorta diameter at the level of the main pulmonary artery is 2.2 cm. The main pulmonary artery diameter at the bifurcation is 3.1 cm. No aneurysmal dilatation is evident. No dissection is evident. Lung windows are clear. Pleural calcifications in the posterior medial left mid lung, example series [address] sections were through the upper abdomen. Upper abdomen appears unremarkable. IMPRESSION: 1. Unremarkable CTA thoracic aorta.
--- NOTE | 2023-08-30 12:13 | CC ---
CARDIAC CATHETERIZATION REPORT PROCEDURES PERFORMED: 1. Left heart catheterization and coronary angiography. 2. IFR assessment of right coronary artery. PERFORMED BY: Dr. Michelle Osuna. ANESTHESIA: Moderate conscious sedation time was 32 minutes. Patient was administered Versed. Oxygen saturation, hemodynamics, and EKG were monitored closely. CLINICAL INFORMATION: Mr. Juan Schmidt is a 63-year-old gentleman who has a history of CAD with a prior PCI initially with setting of an ND in June 2022 and because of a lesion proximal to the stented area of 95%, I performed repeat stenting of LAD proximal to the previous stent on January 26, 2023. He did well until about a month ago but again has symptoms of exertional shortness of breath randomly and sometimes with activity. I performed a stress echo which was normal, but given patient's history of previous normal stress test and significant LAD disease in the midportion in December, I advised coronary angiography after due discussion regarding risks, benefits, and options. PROCEDURE NOTE: Under local anesthesia and strict aseptic precautions, a 6-Wolof introducer was placed in the right radial artery. I used a JL3.5 and JR4 catheters performed coronary angiography with these catheters and the same right catheter was used to check LV pressure, but LV-gram was not performed. Subsequently, I noted that there was a sluggish flow in the dominant RCA with about a 50% to 55% lesion in some views. Therefore, I recommended IFR of this vessel. The previously stented LAD was widely patent without any evidence of restenosis. I used a right Lizabeth type guide catheter of 6-Wolof caliber and Alvarez Doppler wire. With this combination after appropriate equalization and calibration, I performed IFR assessment. Two values are obtained. Both of these were 0.94 suggesting that the lesion was not significant. The IFR of RCA was therefore normal at 0.94. Subsequently, the sheath was taken out and a TR band applied with excellent hemostasis. Saturation of the fingers of the right hand of more than 92%. The details were discussed with the patient and . The patient continues to have shortness of breath and chest pressure and it seems to be the etiology is elusive. I will perform a CT angiogram of the chest to rule out any aortic pathology. I gave him only 50 to 60 mL of dye today. The patient will therefore have CT angiogram of the chest this morning and I also requested a pulmonary evaluation as well and subsequently if his symptoms persist, he should have a full GI evaluation including endoscopy to rule out any GI etiology of chest pain. Discussed my thoughts in detail with the patient as well as his . CARDIAC CATHETERIZATION FINDINGS: The left ventricular end-diastolic pressure was about 8 mmHg without any gradient across aortic valve. CORONARY ANGIOGRAPHY FINDINGS: Right Coronary Artery: Dominant vessel, no significant disease in the proximal and midportion. In the distal segment, the straighter segment before bifurcation, the flow remains sluggish and there is an eccentric area of about 50% to 55% narrowing, mildly worse than the previous study from December. It then bifurcates into 2 branches, PDA, PLV which have minor diffuse disease. RCA therefore has multiple areas of diffuse disease in the mid to distal portion of about 30% to 55%. Left Main Coronary Artery: Normal. No significant disease. Bifurcates into LAD and circumflex. Left Anterior Descending Coronary Artery: Good caliber vessel, extends along the anterior wall, gives off septal and diagonal branches. No significant disease. Stented segment is widely patent without any evidence of restenosis. Beyond the stented segment, there is about a 35% narrowing and then the caliber improved somewhat, runs all the way to the apex without any significant disease. Left Posterior Circumflex Coronary Artery: Technically a nondominant vessel, somewhat of tortuous, minor irregularities, sluggish flow. No significant disease. No more than 20% to 30% narrowing. FINAL IMPRESSION: This patient has widely patent LAD that was previously stented. Dominant RCA has about a 50% to 55% narrowing. IFR was negative at 0.94, not significant lesion. Circumflex and left main has no significant disease. Normal filling pressures. No gradient. RECOMMENDATIONS: I will perform CT angio of the chest and a workup for any GI causes of chest pain and also will request Pulmonary evaluation. MMODL / IJN: [id number] /
[2023-08-30 14:57] VITALS: BP 108/66; PULSE 64
== END 2023-08-30 14:57 | disposition home or self-care (01) ==
LOC: CATHCVL 07:03
PROVIDERS: ATTEND Internal Medicine Interventional Cardiology
DX: I25.10 Atherosclerotic heart disease of native coronary artery without angina pectoris (principal); I25.2 Old myocardial infarction; I10 Essential (primary) hypertension; E78.5 Hyperlipidemia, unspecified; F17.210 Nicotine dependence, cigarettes, uncomplicated; Z95.5 Presence of coronary angioplasty implant and graft; Z79.02 Long term (current) use of antithrombotics/antiplatelets; Z79.51 Long term (current) use of inhaled steroids; Z79.899 Other long term (current) drug therapy
CPT/HCPCS: 93458; 93799; 85025; 71275; 99152; 99153; C1887; C1769 ×2; C1894; J2250; J2001; J1644; Q9967; J2371; J2305

== ENCOUNTER 2023-11-28 11:48 | Emergency (ER) | payer BC ==
[2023-11-28 12:37] VITALS: TEMP 97.8
--- NOTE | 2023-11-28 13:15 | CT ---
EXAMINATION TYPE: CT abdomen pelvis wo con DATE OF EXAM: 11/28/2023 COMPARISON: None HISTORY: 63-year-old male gross hematuria CT DLP: 686.8 mGycm. Automated exposure control for dose reduction was used. TECHNIQUE: Contiguous axial scanning of the abdomen and pelvis without IV contrast. Coronal and sagit bryson reconstructions performed. FINDINGS: The heart is upper limit of normal in size without pericardial effusion. Some strandy atelectasis in the lower lungs without pleural effusion. Noncontrast appearance of the liver, gallbladder, adrenal glands, spleen, and pancreas within normal limits. Indeterminate 9 mm cortical lesion posterior lower right kidney too small for accurate CT characteriz ation, possible tiny cortical cyst. Punctate 3 mm nonobstructive left lower pole renal calculus. 7 mm nonobstructive upper to mid left re nal stone. No hydronephrosis on either side. No dilated small bowel, free fluid, or free air. No mesenteric or retroperitoneal lymphadenopathy. Suspect previous umbilical hernia mesh repair. Normal appendix. Mild stool within the right side of the colon. Sigmoid diverticulosis. No pericoloni c inflammatory change. There is moderate circumferential bladder wall thickening, slightly eccentrica toward the anterior ri ght bladder base measuring up to nearly 1 cm thick. Prostate gland is enlarged at 5.0 cm wide with prominent right paramedian calcifications. Pelvic phle boliths. No abnormal fluid collection in the pelvis or pelvic lymphadenopathy. Bones: Hypertrophic facet arthropathy mid to lower lumbar spine. Bilateral L5 pars defects with a tra ce grade 1 anterolisthesis L5-S1. Grade I L4-L5. The major spondylosis lower thoracic spine. IMPRESSION: 1. Moderate circumferential bladder wall thickening may be chronic for the patient or could reflect c ystitis. However, given slight eccentric wall thickening towards the anterior right bladder base adeline uring up to nearly 1 cm thick, recommend urology referral and correlation with urine cytology to excl ude an underlying urothelial lesion. 2. Indeterminate 9 mm cortical lesion lower pole right kidney. Possible small renal cyst. Six-month f ollow-up CT to ensure stability. 3. A couple nonobstructive left renal stones measuring up to 7 mm. No hydronephrosis on either side. 4. Prostatomegaly 5.0 cm wide. Correlate with PSA values and for any symptoms. 5. Sigmoid diverticulosis without acute diverticulitis.
[2023-11-28] MEDS: SODIUM CHLORIDE 0.9% 1,000 ML IV STA (13:25)
[2023-11-28 13:42] LABS: Amorphous Sediment,Urine Rare /hpf; Appearance,Urine Turbid (Clear); Bilirubin,Urine Negative (Negative); Blood,Urine Large (Negative); Color,Urine Light Brown; Glucose,Urine (UA) Negative (Negative); Ketones,Urine Negative (Negative); Leukocyte Esterase,Urine Trace (Negative); Nitrite,Urine Negative (Negative); Protein,Urine 1+ (Negative); RBC,Urine >182 /hpf (0-5); Specific Gravity,Urine 1.017 (1.001-1.035); Urobilinogen,Urine <2.0 mg/dL (<2.0); WBC,Urine 14 /hpf (0-5)
--- NOTE | 2023-11-28 13:54 | ED ---
General Adult HPI - General Chief complaint: Urogenital Stated complaint: Urogenital Time Seen by Provider: 11/28/23 11:56 Source: patient, RN notes reviewed Mode of arrival: ambulatory Limitations: no limitations - History of Present Illness Initial comments: 63-year-old male presents emergency department with chief complaint of blood in urine. Patient states that this started going on Sunday. Patient states has worsened states there is some chunks within his urine. Patient denies any fevers or chills no dysuria no frequency states he is on Plavix and aspirin. Never had this happen before. Patient states he does have a history of kidney stones. He denies any abdominal pain no significant weight loss no other complaints - Related Data Home Medications Medication Instructions Recorded Confirmed Metoprolol Tartrate [Lopressor] 12.5 mg PO BID 09/18/22 11/28/23 Spironolactone [Aldactone] 12.5 mg PO DAILY 09/18/22 11/28/23 Multivitamins, Thera [Multivitamin 1 tab PO DAILY 08/28/23 11/28/23 (formulary)] Tamsulosin HCl [Flomax] 0.4 mg PO DAILY 08/28/23 11/28/23 Previous Rx's Medication Instructions Recorded Aspirin 81 mg PO DAILY 30 Days #30 tab 06/30/22 Atorvastatin [Lipitor] 80 mg PO DAILY 30 Days #30 tab 06/30/22 Clopidogrel [Plavix] 75 mg PO DAILY 30 Days #30 tab 06/30/22 Nitroglycerin Sl Tabs [Nitrostat] 0.4 mg SUBLINGUAL Q5M PRN #90 tab 06/30/22 Allergies Allergy/AdvReac Type Severity Reaction Status Date / Time No Known Allergies Allergy Verified 11/28/23 13:53 Review of Systems ROS Statement: Those systems with pertinent positive or pertinent negative responses have been documented in the HPI. ROS Other: All systems not noted in ROS Statement are negative. Past Medical History Past Medical History: Coronary Artery Disease (CAD), Hyperlipidemia, Myocardial Infarction (ID) Additional Past Medical History / Comment(s): increased sob with chest discomf ort, sometimes nausea that goes away with rest, hx kidney stones Last Myocardial Infarction Date:: 06/25/22 History of Any Multi-Drug Resistant Organisms: None Reported Past Surgical History: Heart Catheterization With Stent, Hernia Repair, Orthopedic Surgery, Tonsillectomy Additional Past Surgical History / Comment(s): December 2022 had PTCA w/ stent to the mid LAD and intravascular us, shoulder shoulder, kidney surgery for kidney stones,shoulder repair Past Anesthesia/Blood Transfusion Reactions: No Reported Reaction Additional Past Anesthesia/Blood Transfusion Reaction / Comment(s): no hx blood transfusion Date of Last Stent Placement:: ,06/27/23 Past Psychological History: No Psychological Hx Reported Smoking Status: Vaper Past Alcohol Use History: Occasional Past Drug Use History: None Reported - Past Family History Mother Family Medical History: Cancer Father Family Medical History: Cancer General Exam Limitations: no limitations General appearance: alert, in no apparent distress Head exam: Present: atraumatic, normocephalic, normal inspection Eye exam: Present: normal appearance, PERRL, EOMI. Absent: scleral icterus, conjunctival injection, periorbital swelling Respiratory exam: Present: normal lung sounds bilaterally. Absent: respiratory distress, wheezes, rales, rhonchi, stridor Cardiovascular Exam: Present: regular rate, normal rhythm, normal heart sounds. Absent: systolic murmur, diastolic murmur, rubs, gallop, clicks GI/Abdominal exam: Present: soft, normal bowel sounds. Absent: distended, tenderness, guarding, rebound, rigid Back exam: Absent: CVA tenderness (R), CVA tenderness (L) Neurological exam: Present: alert Skin exam: Present: warm, dry, intact, normal color. Absent: rash Course Vital Signs 11/28/23 11:49 Temperature 97.8 F Pulse Rate 57 L Respiratory 18 Rate Blood Pressure 150/83 O2 Sat by Pulse 98 Oximetry Medical Decision Making - Medical Decision Making Was pt. sent in by a medical professional or institution (, PA, SHUTTLE FILLER, urgent care, hospital, or residential...) When possible be specific @ -[No] Did you speak to anyone other than the patient for history (EMS, parent, family, police, friend...)? What history was obtained from this source @ -[No] Did you review nursing and triage notes (agree or disagree)? Why? @ -[I reviewed and agree with nursing and triage notes] Were old charts reviewed (outside hosp., previous admission, EMS record, old EKG, old radiological studies, urgent care reports/EKG's, residential records)? Report findings @ -[No old charts were reviewed] Differential Diagnosis (chest pain, altered mental status, abdominal pain women, abdominal pain men, vaginal bleeding, weakness, fever, dyspnea, syncope, headache, dizziness, GI bleed, back pain, seizure, CVA, palpatations, mental health, musculoskeletal)? @ -Differential Abdominal Pain Men: Appendicitis, cholecystitis, diverticulosis, ischemic bowel, pancreatitis, hepatitis, UTI, gastroenteritis, AAA, incarcerated hernia, bowel obstruction, constipation, inflammatory bowel, hepatitis, peptic ulcer disease, splenic infarction, perforated viscus, testicular torsion, this is not meant to be an all-inclusive list EKG interpreted by me (3pts min.). @ -[As above] X-rays interpreted by me (1pt min.). @ -[None done] CT interpreted by me (1pt min.). @ -CT abdomen pelvis showing abnormal bladder wall, possible cystitis, possible mass U/S interpreted by me (1pt. min.). @ -[None done] What testing was considered but not performed or refused? (CT, X-rays, U/S, labs)? Why? @ -[None] What meds were considered but not given or refused? Why? @ -[None] Did you discuss the management of the patient with other professionals (professionals i.e. , PA, SHUTTLE FILLER, lab, RT, psych nurse, case management social worker, hospital coder, t eacher, parole hearing officer, case monitor)? Give summary @ -[No] Was smoking cessation discussed for >3mins.? @ -[No] Was critical care preformed (if so, how long)? @ -[No] Were there social determinants of health that impacted care today? How? (Homelessness, low income, unemployed, alcoholism, drug addiction, transportation, low edu. Level, literacy, decrease access to med. care, fdc, rehab)? @ -[No] Was there de-escalation of care discussed even if they declined (Discuss DNR or withdrawal of care, Hospice)? DNR status @ -[No] What co-morbidities impacted this encounter? (DM, HTN, Smoking, COPD, CAD, Cancer, CVA, ARF, Chemo, Hep., AIDS, mental health diagnosis, sleep apnea, morbid obesity)? @ -[None] Was patient admitted / discharged? Hospital course, mention meds given and route, prescriptions, significant lab abnormalities, going to OR and other pertinent info. @ -[Discharge patient presented for hematuria laboratory studies unremarkable other than noted blood within urine. Patient CT shows possible mass patient will need to follow-up with urology for cystoscopy Undiagnosed new problem with uncertain prognosis? @ -[No] Drug Therapy requiring intensive monitoring for toxicity (Heparin, Nitro, Insulin, Cardizem)? @ -[No] Were any procedures done? @ -[No] Diagnosis/symptom? @ -Hematuria, bladder wall abnormality Acute, or Chronic, or Acute on Chronic? @ -Acute Uncomplicated (without systemic symptoms) or Complicated (systemic symptoms)? @ -Uncomplicated Side effects of treatment? @ -[No] Exacerbation, Progression, or Severe Exacerbation? @ -[No] Poses a threat to life or bodily function? How? (Chest pain, USA, ID, pneumonia, PE, COPD, DKA, ARF, appy, cholecystitis, CVA, Diverticulitis, Homicidal, Suicidal, threat to staff... and all critical care pts) @ -[No] - Lab Data Result diagrams: 11/28/23 13:18 11/28/23 13:18 Lab Results 11/28/23 11/28/23 11/28/23 Range/Units 13:00 13:18 13:18 WBC 12.3 H (3.8-10.6) k/uL RBC 4.84 (4.30-5.90) m/uL Hgb 14.6 (13.0-17.5) gm/dL Hct 45.8 (39.0-53.0) % MCV 94.5 (80.0-100.0) fL MCH 30.2 (25.0-35.0) pg MCHC 31.9 (31.0-37.0) g/dL RDW 13.3 (11.5-15.5) % Plt Count 236 (150-450) k/uL MPV 8.4 Neutrophils % 70 % Lymphocytes % 16 % Monocytes % 9 % Eosinophils % 1 % Basophils % 0 % Neutrophils # 8.6 H (1.3-7.7) k/uL Lymphocytes # 2.0 (1.0-4.8) k/uL Monocytes # 1.1 H (0-1.0) k/uL Eosinophils # 0.1 (0-0.7) k/uL Basophils # 0.0 (0-0.2) k/uL Sodium 142 (137-145) mmol/L Potassium 4.1 (3.5-5.1) mmol/L Chloride 110 H (98-107) mmol/L Carbon Dioxide 24 (22-30) mmol/L Anion Gap 8 mmol/L BUN 12 (9-20) mg/dL Creatinine 0.70 (0.66-1.25) mg/dL Est GFR (CKD-EPI)AfAm >90 (>60 ml/min/1.73 sqM) Est GFR (CKD-EPI)NonAf >90 (>60 ml/min/1.73 sqM) Glucose 92 (74-99) mg/dL Calcium 9.1 (8.4-10.2) mg/dL Total Bilirubin 0.7 (0.2-1.3) mg/dL AST 30 (17-59) U/L ALT 29 (4-49) U/L Alkaline Phosphatase 139 H (38-126) U/L Total Protein 6.8 (6.3-8.2) g/dL Albumin 4.4 (3.5-5.0) g/dL Lipase 92 (23-300) U/L Urine Color Light Brown Urine Appearance Turbid (Clear) Urine pH 8.0 (5.0-8.0) Ur Specific [place] 1.017 (1.001-1.035) Urine Protein 1+ H (Negative) Urine Glucose (UA) Negative (Negative) Urine Ketones Negative (Negative) Urine Blood Large H (Negative) Urine Nitrite Negative (Negative) Urine Bilirubin Negative (Negative) Urine Urobilinogen <2.0 (<2.0) mg/dL Ur Leukocyte Esterase Trace H (Negative) Urine RBC >182 H (0-5) /hpf Urine WBC 14 H (0-5) /hpf Amorphous Sediment Rare H (None) /hpf Disposition Clinical Impression: Hematuria, Bladder wall thickening Disposition: HOME SELF-CARE Condition: Stable Instructions (If sedation given, give patient instructions): Hematuria (ED) Additional Instructions: Please return to the Emergency Department if symptoms worsen or any other concerns. Is patient prescribed a controlled substance at d/c from ED?: No Referrals: Camron Diaz MD [Primary Care Provider] - 1-2 days Time of Disposition: 14:39
[2023-11-28 14:15] LABS: Basophils % (A) 0 %; Eosinophils # (A) 0.1 k/uL (0-0.7); Eosinophils % (A) 1 %; HCT 45.8 % (39.0-53.0); HGB 14.6 gm/dL (13.0-17.5); Lymphocytes % (A) 16 %; MCH 30.2 pg (25.0-35.0); MCHC 31.9 g/dL (31.0-37.0); MCV 94.5 fL (80.0-100.0); Mean Platelet Volume 8.4; Monocytes # (A) 1.1 k/uL (0-1.0); Monocytes % (A) 9 %; Neutrophils # (A) 8.6 k/uL (1.3-7.7); Neutrophils % (A) 70 %; Platelet Count 236 k/uL (150-450); RBC 4.84 m/uL (4.30-5.90); RDW 13.3 % (11.5-15.5); WBC 12.3 k/uL (3.8-10.6)
[2023-11-28 14:21] LABS: Anion Gap 8 mmol/L; Blood Urea Nitrogen 12 mg/dL (9-20); Carbon Dioxide 24 mmol/L (22-30); Chloride 110 mmol/L (98-107); Glucose 92 mg/dL (74-99); Potassium 4.1 mmol/L (3.5-5.1); Sodium 142 mmol/L (137-145)
[2023-11-28 14:22] LABS: ALT 29 U/L (4-49); AST 30 U/L (17-59); African American GFR (CKD) >90 (>60 ml/min/1.73 sqM); Albumin 4.4 g/dL (3.5-5.0); Alkaline Phosphatase 139 U/L (38-126); Calcium 9.1 mg/dL (8.4-10.2); Lipase 92 U/L (23-300); Non-African American GFR(CKD) >90 (>60 ml/min/1.73 sqM); Total Bilirubin 0.7 mg/dL (0.2-1.3); Total Protein 6.8 g/dL (6.3-8.2)
[2023-11-28 15:22] VITALS: BP 118/76; PULSE 74; RESP 16
== END 2023-11-28 15:18 | disposition home or self-care (01) ==
LOC: EC 11:48
DX: K57.30 Diverticulosis of large intestine without perforation or abscess without bleeding (principal); N32.89 Other specified disorders of bladder; N20.0 Calculus of kidney; F17.290 Nicotine dependence, other tobacco product, uncomplicated
CPT/HCPCS: 36415; 74176; 80053; 81001; 83690; 85025; 87086; 96360; 96361; 99284